=== PATIENT | male | born 1955 | race Caucasian/White ===

== ENCOUNTER 2016-12-25 10:46 | Emergency (ER) | payer OTHER ==
[~2016-12-25] VITALS: Ht 154.9 cm; Wt 70.0 kg
[~2016-12-25 10:46] MED LIST: CARVEDILOL6.25 MG PO; ECOTRIN81 M1 PO; ENALAPRIL10 MG PO; GLU500 PO; L20 PO; MASON25 MG PO; SIMVASTATIN10 MG PO
[2016-12-25 12:07] VITALS: BP 112/70
== END 2016-12-25 12:02 | disposition home or self-care (01) ==
LOC: ED 10:46
DX: L10.89 Other pemphigus (principal); I10 Essential (primary) hypertension; E11.9 Type 2 diabetes mellitus without complications; Z86.79 Personal history of other diseases of the circulatory system; Z79.899 Other long term (current) drug therapy

== ENCOUNTER 2018-05-11 11:43 | Inpatient (IN) | payer OTHER ==
[~2018-05-11] VITALS: Ht 154.9 cm; Wt 68.1 kg
[2018-05-11 15:09] LABS: BASOPHIL % 0.6 % (0-2); PLATELET COUNT 258 x10^3mcL (130-400); RED CELL DISTRIBUTION WIDTH 17.8 % (11.5-14.5)
[2018-05-11 15:48] LABS: CALCIUM 8.3 mg/dL (8.5-10.1); CARBON DIOXIDE 26.4 mmol/L (21-32); CHLORIDE SERUM 103 mmol/L (98-107); CREATININE SERUM 1.5 mg/dL (0.7-1.3); GFR1 50 mL/min; GLUCOSE SERUM 115 mg/dL (74-106); POTASSIUM SERUM 5.4 mmol/L (3.5-5.1); SODIUM SERUM 137 mmol/L (136-145)
[2018-05-11] MEDS ORDERED: GOOD SENSE ASPI81 M3 PO (15:56)
[2018-05-11] MEDS ORDERED: CARVEDILOL6.25 M1 PO (15:56)
[2018-05-11] MEDS ORDERED: ALDACTONE25 MG PO (15:56)
[2018-05-11] MEDS ORDERED: LASIX20 MG PO (15:56)
[2018-05-11] MEDS ORDERED: ENALAPRIL MALEA10 MG PO (15:57)
[2018-05-11] MEDS ORDERED: SIMVASTATIN20 M1 PO (15:58)
[2018-05-11 16:00] LABS: UA SPECIFIC GRAVITY 1.015 (1.005-1.035); microscopic required? YES; urine erythrocyte 1+ (NEGATIVE)
[2018-05-11 16:01] LABS: ALBUMIN 3.5 g/dL (3.4-5.0); ALKALINE PHOSPHATASE 85 U/L (46-116); ALT/SGPT 57 U/L (16-63); AMYLASE 52 U/L (25-115); AST/SGOT 56 U/L (15-37); LIPASE 274 IU/L (73-393); MAGNESIUM 2.3 mg/dL (1.8-2.4); T4(THYROXINE) 8.1 ug/dL (4.7-13.3); TOTAL PROTEIN, SERUM 7.3 g/dL (6.4-8.2)
[2018-05-11 16:02] LABS: CHOLESTEROL 102 mg/dL (<200); HDL CHOLESTEROL 19 mg/dL (40-60)
[2018-05-11 16:21] LABS: AMPHETAMINE QUAL UR NONE DETECTED (See below)
[2018-05-11 17:16] VITALS: BP 109/82
[2018-05-11 17:34] VITALS: BP 111/77
[2018-05-11 21:12] VITALS: BP 109/79
[2018-05-12 04:56] VITALS: BP 112/76
[2018-05-12 05:24] LABS: BASOPHIL % 0.5 % (0-2); PLATELET COUNT 209 x10^3mcL (130-400)
[2018-05-12 05:30] LABS: RED CELL DISTRIBUTION WIDTH 17.3 % (11.5-14.5)
[2018-05-12 05:36] LABS: CALCIUM 8.2 mg/dL (8.5-10.1); CARBON DIOXIDE 24.5 mmol/L (21-32); CHLORIDE SERUM 103 mmol/L (98-107); CREATININE SERUM 1.2 mg/dL (0.7-1.3); GFR1 > 60 mL/min; GLUCOSE SERUM 82 mg/dL (74-106); MAGNESIUM 2.2 mg/dL (1.8-2.4); POTASSIUM SERUM 4.8 mmol/L (3.5-5.1); SODIUM SERUM 138 mmol/L (136-145)
[2018-05-12 09:18] VITALS: BP 107/76
[2018-05-12 12:58] VITALS: BP 98/70
[2018-05-12 17:34] VITALS: BP 98/66
[2018-05-12 22:35] VITALS: BP 103/62
[2018-05-13 05:19] VITALS: BP 110/68
[2018-05-13 07:05] LABS: BASOPHIL % 0.5 % (0-2); PLATELET COUNT 226 x10^3mcL (130-400)
[2018-05-13 07:14] LABS: CALCIUM 8.1 mg/dL (8.5-10.1); CARBON DIOXIDE 29.2 mmol/L (21-32); CREATININE SERUM 1.5 mg/dL (0.7-1.3); PHOSPHOROUS 4.1 mg/dL (2.5-4.9)
[2018-05-13 09:29] VITALS: BP 104/67
[2018-05-13 13:38] VITALS: BP 91/57
[2018-05-13 17:00] VITALS: BP 103/38
[2018-05-14] VITALS (7 sets, daily range): BP systolic 90–122; BP diastolic 49–73; Ht 154.9 cm; Wt 68.1 kg
[2018-05-14 05:28] LABS: BASOPHIL % 0.5 % (0-2); PLATELET COUNT 223 x10^3mcL (130-400)
[2018-05-14 05:37] LABS: RED CELL DISTRIBUTION WIDTH 17.2 % (11.5-14.5)
[2018-05-14 05:47] LABS: CALCIUM 8.5 mg/dL (8.5-10.1); CARBON DIOXIDE 31.7 mmol/L (21-32); CHLORIDE SERUM 97 mmol/L (98-107); CREATININE SERUM 1.2 mg/dL (0.7-1.3); GFR1 > 60 mL/min; GLUCOSE SERUM 130 mg/dL (74-106); MAGNESIUM 2.1 mg/dL (1.8-2.4); PHOSPHOROUS 3.5 mg/dL (2.5-4.9); POTASSIUM SERUM 3.7 mmol/L (3.5-5.1); SODIUM SERUM 137 mmol/L (136-145)
[2018-05-14 19:28] LABS: CALCIUM 8.1 mg/dL (8.5-10.1); CARBON DIOXIDE 33.3 mmol/L (21-32); CREATININE SERUM 1.5 mg/dL (0.7-1.3); MAGNESIUM 2.1 mg/dL (1.8-2.4)
[2018-05-15 03:51] VITALS: BP 100/61
[2018-05-15 04:58] LABS: BASOPHIL % 0.9 % (0-2); PLATELET COUNT 231 x10^3mcL (130-400)
[2018-05-15 05:19] LABS: RED CELL DISTRIBUTION WIDTH 16.1 % (11.5-14.5)
[2018-05-15 05:43] LABS: CALCIUM 8.4 mg/dL (8.5-10.1); CARBON DIOXIDE 33.4 mmol/L (21-32); CREATININE SERUM 1.3 mg/dL (0.7-1.3); MAGNESIUM 2.3 mg/dL (1.8-2.4); PHOSPHOROUS 4.4 mg/dL (2.5-4.9); POTASSIUM SERUM 3.6 mmol/L (3.5-5.1)
[2018-05-15 08:15] VITALS: BP 101/68
[2018-05-15 11:30] VITALS: BP 86/59
[2018-05-15 16:30] VITALS: BP 93/58
[2018-05-15 19:36] VITALS: BP 91/60
[2018-05-15 23:26] VITALS: BP 93/63
[2018-05-16 03:24] VITALS: BP 97/68
[2018-05-16 05:41] LABS: BASOPHIL % 0.7 % (0-2); PLATELET COUNT 240 x10^3mcL (130-400)
[2018-05-16 05:45] LABS: CALCIUM 8.7 mg/dL (8.5-10.1); CARBON DIOXIDE 32.9 mmol/L (21-32); CREATININE SERUM 1.3 mg/dL (0.7-1.3); MAGNESIUM 2.2 mg/dL (1.8-2.4); PHOSPHOROUS 3.4 mg/dL (2.5-4.9); POTASSIUM SERUM 3.5 mmol/L (3.5-5.1)
[2018-05-16 05:47] LABS: RED CELL DISTRIBUTION WIDTH 16.1 % (11.5-14.5)
[2018-05-16 08:07] VITALS: BP 121/48
[2018-05-16 10:00] VITALS: BP 107/68
[2018-05-16 13:47] VITALS: BP 116/74
[2018-05-16 16:53] VITALS: BP 120/69
[2018-05-16 21:09] VITALS: BP 104/69
[2018-05-17 05:34] VITALS: BP 106/63
[2018-05-17] MEDS ORDERED: ALDACTONE25 MG PO (08:52)
[2018-05-17] MEDS ORDERED: CHLORTHALIDONE25 MG PO (09:01)
[2018-05-17 09:05] LABS: BASOPHIL % 0.8 % (0-2); PLATELET COUNT 265 x10^3mcL (130-400)
[2018-05-17 09:07] LABS: RED CELL DISTRIBUTION WIDTH 16.1 % (11.5-14.5)
[2018-05-17 09:17] LABS: CARBON DIOXIDE 35.1 mmol/L (21-32); CREATININE SERUM 1.5 mg/dL (0.7-1.3); POTASSIUM SERUM 3.7 mmol/L (3.5-5.1)
[2018-05-17 10:50] VITALS: BP 110/74
[2018-05-17 13:07] VITALS: BP 105/76
[2018-05-17 16:17] VITALS: BP 105/76
== END 2018-05-17 18:57 | disposition home or self-care (01) | DRG 190 ==
LOC: ED 11:43 → DU 15:38 → IC 05-13 16:44 → DU 05-16 09:49
PROVIDERS: Emergency Medicine; Family Medicine; Internal Medicine Cardiovascular Disease; ADMIT Internal Medicine
DX: I21.4 Non-ST elevation (NSTEMI) myocardial infarction (principal); N17.0 Acute kidney failure with tubular necrosis; R57.0 Cardiogenic shock; I50.43 Acute on chronic combined systolic (congestive) and diastolic (congestive) heart failure; I11.0 Hypertensive heart disease with heart failure; E11.622 Type 2 diabetes mellitus with other skin ulcer; E78.5 Hyperlipidemia, unspecified; I25.5 Ischemic cardiomyopathy; E11.51 Type 2 diabetes mellitus with diabetic peripheral angiopathy without gangrene; E11.65 Type 2 diabetes mellitus with hyperglycemia; E78.00 Pure hypercholesterolemia, unspecified; I08.1 Rheumatic disorders of both mitral and tricuspid valves; E87.5 Hyperkalemia; I25.10 Atherosclerotic heart disease of native coronary artery without angina pectoris; Z95.1 Presence of aortocoronary bypass graft; Z87.891 Personal history of nicotine dependence; Z79.84 Long term (current) use of oral hypoglycemic drugs; I25.2 Old myocardial infarction; Z91.11 Patient's noncompliance with dietary regimen; Z91.14 Patient's other noncompliance with medication regimen
CPT/HCPCS: 36600; 82962; 83880; G0480; J0282; J0690; J0696; J1650; J1940; J1956; J3370; J7040; J7050; J7060; Q0092

== ENCOUNTER 2018-05-23 08:36 | Inpatient (IN) | payer OTHER ==
[~2018-05-23] VITALS: Ht 154.9 cm; Wt 62.3 kg
[~2018-05-23 08:36] MED LIST changes: +ALDACTONE25 MG PO; +CARVEDILOL6.25 M1 PO; +CHLORTHALIDONE25 MG PO; +ENALAPRIL MALEA10 MG PO; +GOOD SENSE ASPI81 M3 PO; +LASIX20 MG PO; +SIMVASTATIN20 M1 PO
--- NOTE | 2018-05-23 09:02 | NUR ---
DR BENAVIDES COMPLETED MSE.
--- NOTE | 2018-05-23 09:05 | NUR ---
PT PRESENTS AT ED WITH BROTHER AT BEDSIDE WITH C/C OF SOB X 1 DAY. PT HAS HX OF CHF, AND DM. PT WAS RECENLTY DC WITH CHF EXASPERATION. PT PRESENTS WITH LABORDED BREATING, COLD EXTREMITIES, SOB AND HEADACHE. PT DENIES VOMITING DIAHRREA OR FEVER. PT PLACED ON CARIDAC MONITOR, O2/NL 2L, EKG COMPLETED BY EMT AMANDA/ IV PLACED BY RUT WHEELER. PT GIVEN WARM BLANKENTS FOR COMFORT DR BENAVIDES AT BEDSIDE TO DISCUSS PLAN OF CARE. WILL CONTINUE TO MONITOR
--- NOTE | 2018-05-23 09:22 | NUR ---
XRAY IN ROOM WITH PT
[2018-05-23] MEDS ORDERED: ENALAPRIL MALE2.5 MG PO (09:28)
[2018-05-23] MEDS ORDERED: LIPI20 PO (09:29)
[2018-05-23] MEDS ORDERED: AMIODARONE HCL200 MG (09:33)
--- NOTE | 2018-05-23 09:40 | NUR ---
LAB TECK AT BESIDE
[2018-05-23 10:26] LABS: BILIRUBIN TOTAL 0.92 mg/dL (0.20-1.00); CALCIUM 7.9 mg/dL (8.5-10.1); CARBON DIOXIDE 14.7 mmol/L (21-32); PHOSPHOROUS 6.3 mg/dL (2.5-4.9); TOTAL PROTEIN, SERUM 6.8 g/dL (6.4-8.2); URIC ACID 9.8 mg/dL (3.5-7.2)
[2018-05-23 10:28] LABS: BASOPHIL % 0.3 % (0-2); PLATELET COUNT 227 x10^3mcL (130-400)
[2018-05-23 10:30] LABS: ALBUMIN 2.8 g/dL (3.4-5.0); POTASSIUM SERUM 5.9 mmol/L (3.5-5.1)
[2018-05-23 10:34] LABS: RED CELL DISTRIBUTION WIDTH 16.6 % (11.5-14.5)
--- NOTE | 2018-05-23 11:13 | NUR ---
PT GIVEN MEDICATIONS ORDERED NO INFILTRATION OR PAIN NOTED. PT CALM ALERT, NAD AND ABLE TO SPEAK IN CLEAR SENTENCES WITHOUT DISTRESS. MD AT BEDSIDE.
--- NOTE | 2018-05-23 11:21 | NUR ---
PT SITTING COMFORTABLY IN UPRIGHT POSITION. DENIES PAIN OR DISCOMFORT MEDICATIONS INFUSING ORDERED. VITALS STABLE
--- NOTE | 2018-05-23 12:03 | NUR ---
CALLED TO GIVE REPORT TO RUT CERVANTES. INSTRUCTED THE RN WAS UNAVAILABLE AND TO CALL BACK WITHIN 10 MINUTES
--- NOTE | 2018-05-23 12:12 | NUR ---
TRIED TO CALL BACK TO GIVE REPORT TO RN TO ASSUME CARE OF PATIJACK. RN UNAVAILABLE AND INSTRUCTED TO CALL BACK
[2018-05-23 12:15] LABS: T3 TOTAL 0.6 ng/mL
[2018-05-23 12:30] LABS: FREE T4 1.11 ng/dL (0.76-1.46); FREE THYROXINE INDEX 3.5 ug/dL (1.4-4.5); T4(THYROXINE) 9.7 ug/dL (4.7-13.3)
--- NOTE | 2018-05-23 12:31 | NUR ---
REPORT GIVEN TO HELEN BETTENCOURT TO ASSUME CARE OF PT. PT VITALS STABLE DENIES PAIN NAD REPIRATIONS E/U
--- NOTE | 2018-05-23 12:31 | NUR ---
RECEIVED REPORT FROM JOAQUIM BETTENCOURT.
[2018-05-23 13:01] VITALS: BP 100/68
--- NOTE | 2018-05-23 13:24 | NUR ---
RECEIVED PT FROM ED ACCOMPANIED BY NURSE. Laine/KEIKO. TELE#27. RESPIRATIONS EQUAL AND UNLABORED ON NC 2L. NO ACUTE RESP DISTRESS NOTED. PT DENIES ANY PAIN OR SOB. WILL CONTINUE TO MONITOR. CALL LIGHT IN REACH. BED IN LOWEST POSITION.
--- NOTE | 2018-05-23 13:25 | NUR ---
PT SITTING UP IN BED EATING LUNCH. GIVEN PO MEDS. TOLEATED WELL. IV FLUSHED WELL. NO REDNESS OR SWELLING NOTED. IV FLUIDS INFUSING. GIVEN HEPARIN SQ IN ABDOMEN. PT DENIES ANY PAIN. NO ACUTE RESP DISTRESS NOTED. MRSA DONE. WILL CONTINUE TO MONITOR. CALL LIGHT IN REACH. BED IN LOWEST POSITION.
[2018-05-23 14:19] VITALS: BP 207/99
[2018-05-23 15:16] LABS: CALCIUM 8.8 mg/dL (8.5-10.1); CARBON DIOXIDE 22.3 mmol/L (21-32); POTASSIUM SERUM 5.4 mmol/L (3.5-5.1)
--- NOTE | 2018-05-23 15:30 | NUR ---
SPOKE WITH PATRICIA BURNS REQUESTED TO CANCEL ULTRASOUND RENAL PER LAB. RENAL WILL BE INCLUDED IN US ABDOMEN COMPLETE. ALSO INFORMED PATRICIA OF CRITICAL BUN 79.
--- NOTE | 2018-05-23 16:28 | NUR ---
PT IN BED RESTING. DENIES ANY PAIN AT THIS TIME. GIVEN IV ALBUMIN. RESPIRATIONS EQUAL AND UNLABORED ON RA. NO ACUTE RESP DISTRESS NOTED. WILL CONTINUE TO MONITOR. CALL LIGHT IN REACH. BED IN LOWEST POSITION
[2018-05-23 17:16] VITALS: BP 100/73
--- NOTE | 2018-05-23 18:59 | NUR ---
PT IN BED RESTING. RESPIRATIONS EQUAL AND UNLABORED ON RA. NO ACUTE RESP DISTRESS NOTED. DENIES ANY PAIN AT THIS TIME. IV PATENT AND INFUSING. NO REDNESS OR SWELLING NOTED. TELE#27. WILL ENDORSE TO EXHIBITS CURATOR RN. CALL LIGHT IN REACH. BED IN LOWEST POSITION.
--- NOTE | 2018-05-23 19:12 | NUR ---
PT RECEIVED A/O X4, RUSSIAN SPEAKING. ABLE TO MAKE NEEDS KNOWN. TELE #27, ALICE ANY CHEST PAIN/PRESSURE. WEAK PEDAL PULSES, 2+ PITTING EDEMA TO LEFT FOOT. LUNG SOUNDS CTA, BREATHING IS EVEN AND UNLABORED ON RA, DENIES SOB, NO RESP DISTRESS NOTED. ABD SOFT AND NONDISTENDED, BOWEL TONES ACTIVE X4 QUAD, DENIES N/V. VOIDS FREELY, URINAL AT BEDSIDE, BRP. STRICT I&O. GENREALIZED WEAKNESS, AMBULATORY. DARK DISCOLORATION TO BLE. PT DENIES ANY PAIN AT THIS TIME. IVF INFUSING WELL TO , SITE WNL. BED IN LOWEST SETTING, SIDE RAILS UP X2, CALL LIGHT WITHIN REACH. US TECH AT BEDSIDE. WILL CONT TO MONITOR.
[2018-05-23 20:39] VITALS: BP 115/73
--- NOTE | 2018-05-24 00:10 | NUR ---
PT RESTING IN BED WITH EYES CLOSED, BUT IS EASILY AROUSABLE. BREATHING IS EVEN AND UNLABORED, NO RESP DISTRESS NOTED. PT DENIES HAVING ANY PAIN AT THIS TIME. IVF INFUSING WELL TO , SITE WNL. CALL LIGHT WITHIN REACH. WILL CONT TO MONITOR.
[2018-05-24 05:19] VITALS: BP 124/79
--- NOTE | 2018-05-24 05:53 | NUR ---
PT SLEPT WELL THROUGHOUT THE EVENING. BREATHING IS EVEN AND UNLABORED, NO RESP DISTRESS NOTED. PT DENIES HAVING ANY PAIN AT THIS TIME. NO ACUTE CHANGES NOTED DURING SHIFT. IVF INFUSING WELL TO , SITE WNL. ALL NEEDS MET. CALL LIGHT WITHIN REACH. WILL ENDORSE CARE TO AM NURSE.
[2018-05-24 06:17] LABS: BASOPHIL % 0.4 % (0-2); PLATELET COUNT 229 x10^3mcL (130-400)
[2018-05-24 06:43] LABS: BILIRUBIN DIRECT 0.42 mg/dL (0.0-0.2); BILIRUBIN TOTAL 1.01 mg/dL (0.20-1.00); CALCIUM 8.2 mg/dL (8.5-10.1); CARBON DIOXIDE 24.4 mmol/L (21-32); CREATININE SERUM 2.3 mg/dL (0.7-1.3); POTASSIUM SERUM 4.8 mmol/L (3.5-5.1); TOTAL PROTEIN, SERUM 7.1 g/dL (6.4-8.2)
[2018-05-24 06:50] LABS: ALBUMIN 3.3 g/dL (3.4-5.0)
--- NOTE | 2018-05-24 07:23 | NUR ---
RECEIVED PT REPORT. PT SEEN REST ON BED, AWAKE, BELIZEAN SPEAKING. PT NO COMPLAIN OF PAIN AND DISCOMFORT AT THIS TIME. PT BREATHING ON RA, EVEN, UNLABORED.IV SITE PATENT, INTACT. IVF INFUSING WELL. PT IS ON ISOLATION OF HX MDRO WOUND.
[2018-05-24 08:52] VITALS: BP 121/70
--- NOTE | 2018-05-24 09:22 | NUR ---
WOUND CARE EVALUATION NOTE: SKIN ASSESMENT DONE, SKIN INTACT, NO OPEN WOUNDS, BLE DRYNESS WITH MULTIPLES SCABS AND PERIANKLE DARKER PIGMENTATIONS. FUNGAL LIKE TOE NAILS, PAIN 0/10. RECOMMENDATION: APPLY HYDRAGUARD TO BLE BID AND LEAVE IT OPEN TO AIR KEEP TOE NAILS / INTERSPACES DRY AND CLEAN AT ALL TIMES ABOVE RECOMMENDATIONS NOTIFY PRIMARY RN AND JOSUE TYLER NP.
--- NOTE | 2018-05-24 11:00 | NUR ---
PT REST ON BED, NO PROBLEM WITH URINATION, NO COMPLAIN OF ANY DISCOMFORT. WILL CONTINUE TO MONITOR.
[2018-05-24 13:31] VITALS: BP 97/55
[2018-05-24 16:27] VITALS: BP 107/70
--- NOTE | 2018-05-24 19:19 | NUR ---
PT RECEIVED A/O X4, INDIAN SPEAKING. ABLE TO MAKE NEEDS KNOWN. TELE #27, ALICE ANY CHEST PAIN/PRESSURE. WEAK PEDAL PULSES, PITTING EDEMA TO BLE. LUNG SOUNDS CTA, BREATHING IS EVEN AND UNLABORED ON RA, DENIES SOB, NO RESP DISTRESS NOTED. ABD SOFT AND NONDISTENDED, BOWEL TONES ACTIVE X4 QUAD, DENIES N/V. VOIDS FREELY, URINAL AT BEDSIDE, BRP. STRICT I&O. GENERALIZED WEAKNESS, AMBULATORY. DARK DISCOLORATION TO BLE, SCABS NOTED TO LEFT ANKLE. PT DENIES ANY PAIN AT THIS TIME. IVF INFUSING WELL TO , SITE WNL. BED IN LOWEST SETTING, SIDE RAILS UP X2, CALL LIGHT WITHIN REACH. WILL CONT TO MONITOR.
--- NOTE | 2018-05-24 19:28 | NUR ---
PT'S BROTHER IN LAW AT BED SIDE. PT NO COMPLAIN OF PAIN AT THIS TIME. ENDORSE PT'S CARE TO COMING NURSE.
[2018-05-24 20:19] VITALS: BP 122/77
--- NOTE | 2018-05-24 22:52 | NUR ---
PT ASKING ABOUT HIS CARDIAC MEDS. NO CARDIAC MEDS ARE SCHEDULED FOR THIS EVENING. DR ERVIN MADE AWARE. 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
--- NOTE | 2018-05-25 01:05 | NUR ---
PT RESTING IN BED WITH EYES CLOSED, BUT IS EASILY AROUSABLE. BREATHING IS EVEN AND UNLABORED, NO RESP DISTRESS NOTED. NO S/S OF PAIN OBSERVED. SL TO LH INTACT. NO ACUTE DISTRESS NOTED. CALL LIGHT WITHIN REACH. WILL CONT TO MONITOR.
--- NOTE | 2018-05-25 03:04 | NUR ---
PT C/O 08/26 CHEST PAIN AND SOB. VS: BP-122/84 (100), HR-78, 02 SAT ON RA-95%, RR-20, TEMP-97.7 F. NO ACUTE DISTRESS NOTED. PT STATES, "WHEN I GET COLD, I GET CHEST PAIN AND IT BECOMES HARD TO BREATH." PT REFUSES ANY PAIN MEDS AT THIS TIME, STATES "IF I KEEP GETTING IT, THEN I WILL CALL FOR PAIN MEDS." WARM BLANKET PROVIDED. NO ACUTE DISTRESS NOTED. DR DUMONT CALLED TO UPDATE, AWAITING CALL BACK. CALL LIGHT STEVEN REACH, WILL CONT TO MONITOR.
[2018-05-25 05:31] VITALS: BP 127/80
[2018-05-25 06:05] LABS: BASOPHIL % 0.7 % (0-2); PLATELET COUNT 209 x10^3mcL (130-400)
--- NOTE | 2018-05-25 06:05 | NUR ---
PT SLEPT AT INTERVALS THROUGHOUT THE NIGHT. BREATHING EVEN AND UNLABORED, NO RESP DISTRESS NOTED. PT ADMITS TO 4/10 CP, PT REFUSES PAIN MEDS AT TIME, STATES "NO, I'M OKAY FOR NOW." DR ERVIN AWARE OF PT'S CP. PER DR ERVIN WILL ORDER STAT EKG, AWAITING ORDERS. ALL NEEDS MET. SL TO LH, PATENT AND INTACT. CALL LIGHT WITHIN REACH. WILL ENDORSE CARE TO AM NURSE.
[2018-05-25 06:28] LABS: RED CELL DISTRIBUTION WIDTH 16.8 % (11.5-14.5)
[2018-05-25 06:37] LABS: CALCIUM 8.7 mg/dL (8.5-10.1); CARBON DIOXIDE 20.3 mmol/L (21-32); CREATININE SERUM 1.7 mg/dL (0.7-1.3); MAGNESIUM 2.7 mg/dL (1.8-2.4); POTASSIUM SERUM 4.3 mmol/L (3.5-5.1)
--- NOTE | 2018-05-25 07:19 | NUR ---
PT SEEN REST ON BED. PT REPORTED CHEST PAIN STILL THERE, BUT GETTING BETTER. PT STATED PAIN WITHIN TOLERANCE, REFUSED MED TO MANAGE. PT BREATHING ON RA, EVEN, UNLABORED. IV SITE SALINE LOCK AT THIS TIME PER ORDER.
[2018-05-25 09:17] VITALS: BP 129/87
--- NOTE | 2018-05-25 09:31 | NUR ---
Nutrition Note Wound Consult received for BLE wounds. Pt admitted with Renal Failure, metabolic acidosis, hyponatremia per H&P documentations. Per Cigar Head Perforator note 05/24/18: skin is intact, no open wounds, BLE w/ dry scabs. Pt does not meet high risk criteria per nutrition care policy and standards. Pt will be assessed as moderate risk and initial assessment due 05/27-05/29.
[2018-05-25 13:26] VITALS: BP 122/77
--- NOTE | 2018-05-25 16:09 | NUR ---
DR. BAJWA SAW PT AND STATED SHE WOULD ADJUST SOME PT'S HOME MEDS. MADE KATY SALAS AWARE. KATY SALAS CONFIRMED SHE COMMUNICATED WITH DR. BAJWA AND WILL ADJUST PT'S MEDS.
[2018-05-25 17:15] VITALS: BP 139/76
--- NOTE | 2018-05-25 19:20 | NUR ---
RECEIVED PT AWAKE,ALERT,ORIENTED X4. PT WALKING IN THE ROOM W/ STEADY GAIT NOTED. LUNGS CTA. NO SOB ON RA. BWEL SOUNDS ACTIVE. HE DENIES PAIN AT THIS TIME. W/ HL TO LT HAND INTACT. CALL LIGHT W/IN REACH. PT ON CONTACT ISOLATION.
--- NOTE | 2018-05-25 20:02 | NUR ---
ENDORSE PT'S CARE TO RECEIVING NURSE.
[2018-05-25 20:08] VITALS: BP 115/79
[2018-05-26] VITALS (8 sets, daily range): BP systolic 78–106; BP diastolic 47–73
--- NOTE | 2018-05-26 00:08 | NUR ---
PT APPEARS TO BE SLEEPING COMFORTABLY. HE IS BREATHING EVEN AND UNLABORED.
--- NOTE | 2018-05-26 05:08 | NUR ---
PT SLEPT FAIRLY. HE REMAINS ALERT AND ORIENTED X4. HE HAD NO C/O DIZZINESS OR LIGHTHEADEDNESS. NO C/O SOB. HE IS ABLE TO AMBULATE W/ STEADY GAIT. PT HAD NO C/O PAIN. HL TO LT HAND INTACT AND PATENT.
[2018-05-26 06:37] LABS: BASOPHIL % 0.5 % (0-2); PLATELET COUNT 226 x10^3mcL (130-400)
--- NOTE | 2018-05-26 07:15 | NUR ---
RECEIVED PT. IN BED A/A/O X3. NO SOB, NO N/V NOTED. PT. DENIES ANY PAIN AT THIS TIME. PT. IS ON CONTACT ISOLATION (HX. OF MDRO FROM WOUND). IV SITE NOTED TO L HAND. BED IN LOW POS., CALL LIGHT WITHIN REACH. SIDE RAILS UP X3.
[2018-05-26 07:41] LABS: CALCIUM 8.8 mg/dL (8.5-10.1); CARBON DIOXIDE 18.7 mmol/L (21-32); CREATININE SERUM 1.6 mg/dL (0.7-1.3); POTASSIUM SERUM 5.1 mmol/L (3.5-5.1)
--- NOTE | 2018-05-26 13:42 | NUR ---
CALLED AND GAVE REPORT TO RUT AUSTIN. IN ICU DEPT.
--- NOTE | 2018-05-26 13:50 | NUR ---
PT. IS BEING SEEN BY DR. BAJWA. DR. BAJWA STATED PT. NEEDS TO BE TRANSFERRED TO ICU DEPT. DUE TO ELEVATED BNP LEVEL (5057).
--- NOTE | 2018-05-26 13:53 | NUR ---
PT. IS BEING TRANSFERRED TO ICU DEPT. WITH ALL PERSONAL BELONGINGS.
--- NOTE | 2018-05-26 13:55 | NUR ---
RECEIVED THE PATIENT TRANSFERRED FROM [facility] UNIT. THE PATIENT AWAKE AND ORIENTED TO PERSON, PLACE AND TIME. PATIENT WAS ASSISTED TO POSITION COMFORTALY IN BED. PATIENT DENIED ANY PAIN, SHORTNESS OF BREATH, OR NAUSEA/VOMITING. SL NOTED TO LEFT HAND. PATIENT WAS ORIENTED TO ROOM AND HOOKED UP TO MONITOR. VS CHECKED. CALL LIGHT WITHIN REACH. SIDE RAILS UP X3.
--- NOTE | 2018-05-26 15:15 | NUR ---
MILRINONE DRIP WAS INITIATED AT 7.5ML/HR PER ORDERED.
--- NOTE | 2018-05-26 15:30 | NUR ---
DR. STOUT WAS AT BEDSIDE AND WAS AWARE OF THE PATIENT'S BP WAS AT LOW SIDE BUT THE MAP >60.
--- NOTE | 2018-05-26 17:39 | NUR ---
THE DINNER TRAY WAS HELD PER DR. STOUT'S REQUEST BECAUSE THE PATIENT MAY HAVE AICD PLACEMENT AT 1900.
--- NOTE | 2018-05-26 17:50 | NUR ---
DR. STOUT CALLED SAYING THAT THE PATIENT COULD HAVE DINNER. THE DINNER TRAY WAS SET UP FOR THE PATIENT.
--- NOTE | 2018-05-26 18:35 | NUR ---
PATIENT WAS CALM AND DENIED DISCOMFORT SINCE TRANSFERRED TO THE ROOM. PATIENT TOLERATED WITH DINNER, AND GOT OUT OF BED USING BEDSIDE COMMODE BY HIMSELF. THE MILRINONE DRIP REMAINED AT 7.5ML/HR ORDERED.
--- NOTE | 2018-05-26 19:16 | NUR ---
REPORT WAS GIVEN LINDA; CONCERNS WERE ADDRESSED.
--- NOTE | 2018-05-26 19:35 | NUR ---
RECEIVED PT AWAKE, ALERT AND ORIENTED X4, NO DISTRESS NOTED. TELE MONITOR #[address], READING SB WITH BBB; PT DENIES ANY CHEST PAIN OR CHEST DISCOMFORT AT THIS TIME. ON RA, BREATHING IS E/U, B/L LUNG SOUNDS CTA, DENIES SOB AT THIS TIME. ABD APPEARS SLIGHTLY FIRM, ROUND, ACTIVE BOWEL SOUNDS X4 Q. DENIES ABD PAIN OR DISCOMFORT. PT NOTED TO HAVE BLE DRYNESS AND OLD, DRY SCABS. NO OPEN WOUNDS NOTED. SHAYLEE. +2 PITTING EDEMA NOTED TO BLE, WEAK PEDAL PULSES, CAP REFILL <3 SECS. IV NOTED TO LFA, INFUSING MILRINONE AT 7.5 ML/HR. IV IS PATENT AND INTACT. NO REDNESS, SWELLING OR PAIN NOTED TO AREA. ALL SAFETY AND COMFORT MEASURES MAINTAINED. FAMILY AT BEDSIDE. CALL LIGHT AND PERSONAL ITEMS IN REACH. WILL CONTINUE TO MONITOR.
--- NOTE | 2018-05-26 21:30 | NUR ---
DR. SIFUENTES CAME IN TO SEE PATIENT; ALL NEEDS AND ADDRESSED. PER DR. SIFUENTES TO GIVE COREG AND LASIX. PT BP AT THIS TIME 103/67 HR 56. PT STABLE. WILL CONTINUE TO MONITOR.
--- NOTE | 2018-05-26 21:50 | NUR ---
DR. SIFUENTES AT BEDSIDE TO SPEAK TO PATIENT IN REGARDS TO BIVENTRICULAR PACER PLACEMENT. PATIENT VERBALIZED UNDERSTANDING. STATED THAT PROCEDURE WILL MOST LIKELY BE OCCURRING ON THIS UPCOMING WEDNESDAY.
--- NOTE | 2018-05-26 22:44 | NUR ---
PT RESTING WITH EYES CLOSED AT THIS TIME, EASILY AROUSABLE. NO ACUTE DISTRESS NOTED. NO INDICATION OF PAIN OR DISCOMFORT OBSERVED. SAFETY AND COMFORT PRECAUTIONS MAINTAINED. CALL LIGHT IN REACH. WILL CONTINUE TO MONITOR.
--- NOTE | 2018-05-26 23:14 | NUR ---
PTS BP NOW AT 78/[address] AZIZA GARCIA. AWAITING FURTHER ORDERS. WILL CONTINUE TO MONITOR.
--- NOTE | 2018-05-26 23:22 | NUR ---
SPOKE TO DR. ERVIN AND MADE HER AWARE OF CURRENT BP AT 81/47 MAP 59 AND HR 48-49. ORDER TO MONITOR BP FOR NOW. PT APPEARS COMFORTABLE, RESTING WITH EYES CLOSED, EASILY AROUSABLE TO VERBAL STIMULI. NO INDICATION OF DISTRESS NOTED . RESP. ARE E/U, RR AT 12 O2 AT 95% ON RA. WILL CONTINUE TO MONITOR.
[2018-05-27] VITALS (9 sets, daily range): BP systolic 90–114; BP diastolic 45–77
--- NOTE | 2018-05-27 03:25 | NUR ---
PT RESTING AT THIS TIME WITH EYES CLOSED, EASILY AROUSABLE TO VERBAL STIMULUS, ABLE TO FOLLOW COMMANDS. NO DISTRESS NOTED. NO C/O PAIN OR DISCOMFORT NOTED. SAFETY AND COMFORT MEASURES MAINTAINED. CALL LIGHT IN REACH. WILL CONTINUE TO MONITOR.
[2018-05-27 05:33] LABS: BASOPHIL % 0.7 % (0-2); PLATELET COUNT 225 x10^3mcL (130-400)
[2018-05-27 05:34] LABS: RED CELL DISTRIBUTION WIDTH 16.9 % (11.5-14.5)
[2018-05-27 05:43] LABS: CALCIUM 8.3 mg/dL (8.5-10.1); CARBON DIOXIDE 24.4 mmol/L (21-32); CREATININE SERUM 1.7 mg/dL (0.7-1.3); MAGNESIUM 2.2 mg/dL (1.8-2.4); PHOSPHOROUS 3.9 mg/dL (2.5-4.9); POTASSIUM SERUM 3.8 mmol/L (3.5-5.1)
--- NOTE | 2018-05-27 06:04 | NUR ---
PT AWAKE, RESTING IN BED AT THIS TIME. NO DISTRESS NOTED. PT STABLE, BP 100/61, HR 51. NO C/O PAIN AT THIS TIME. NO ACUTE CHANGES IN CONDITION. NO ABD PAIN, NO N/V NOTED. IV TO LH PATENT AND INTACT. ALL SAFETY MEASURES MAINTAINED. CALL LIGHT IN REACH. WILL ENDORSE CARE TO AM NURSE AND CONTINUE TO MONITOR.
--- NOTE | 2018-05-27 07:30 | NUR ---
PT IS ALERT AND ORIENTED X4. PUPILS ARE 3 MM AND BRISK BILATERALLY. ABLE TO VERBALIZE ALL NEEDS. PT IS BREATHING E/U ON RA. LUNG SOUNDS CLEAR TO BILATERAL UPPER LOBES, DIMINSHED TO BILATERAL LOWER LOBES. S1 S2 HEART SOUNDS AUSCULTATED IN A FIB. PERIPHERAL IV TO LEFT WRIST. PT HAS MILRINONE INFUSION AT 7.5 ML/HR. +3 EDEMA TO BLE WITH PITTING. CAP REFILL <3 SECONDS X4. SKIN IS WARM AND CONSISTENT WITH ETHNICITY. ABD IS SOFT AND ROUNDED WITH ACTIVE BOWEL SOUNDS X4Q. PT VOIDS FREELY USING URINAL. ABLE TO REPOSITION SELF INDEPENDENTLY. SKIN INTACT. HAS SOME SCABBING TO BILATERAL ANKLES. ALL QUESTIONS AND CONCERNS ANSWERED.
--- NOTE | 2018-05-27 10:03 | NUR ---
DR. MACKAY AT BEDSIDE WITH RESIDENT AND MEDICAL STUDENTS FOR UPDATES. ALL QUESTIONS AND CONCERNS ANSWERED.
--- NOTE | 2018-05-27 10:34 | NUR ---
DR. BAJWA AT BEDSIDE FOR UPDATES. STATED THAT PT WILL REMAIN ON MILRINONE FOR THE WEEKEND.
--- NOTE | 2018-05-27 12:43 | NUR ---
*Recommend adding Cardiac Low Fat Low CHOL 2gm Na to current diet. Please see Nutritional Assessment for details.
--- NOTE | 2018-05-27 12:43 | NUR ---
Initial Nutrition Assessment- Dx: Renal Failure, Metabolic Acidosis, Hyponatremia PMHx: DM, HTN, Dyslipidemia, CHF, CAD, ID PSHx: CABG Labs: (05/27) BUN 56 H, CRE 1.7 H, Ca 8.3 L, (05/23) HgA1c 6.8 H Meds: aldactone, humulin, lasix, mildrinone/D5%W IV, zofran, heparin Diet: CCHO diet x 4 days ; Fluid restriction 1200ml per day. PO Intake: 99% x 5 meals Ht: 5'1 Wt: 147 lb, 67 kg BMI: 27.8 kg/m2 (overweight) IBW: 112 lb, 51 kg %IBW: 131 UBW: 150 lb Age: 62 yrs old Food Allergies: NKFA Skin: L groin w/ dermatitis, L lower leg w/ scattered drued wounds, R lower leg w/ scattered dried wounds. Sha: 19 Edema: 3+ pitting edema to BLE. GI: abd is firm and round w/ active bowel sounds. Last BM 05/27/18, soft. Per H&P, presented to the ER complaining of dizziness that started last night. Other associated symptoms include some generalized weakness. However he denies any shortness of breath, nausea/vomiting/diarrhea, fever/chills, pain, orthopnea, syncope. He states he has been compliant with his medication and has still been having urine output. Bed huddle Per Neurourologist note 05/24/18: BLE w/ dry scabs. Skin is intact. Pt seen resting in bed at time of RD visit. ICU staff helped in the interpretation as pt is Sami speaking. Pt reported noticing some wt loss as his pants feel loose, amount and time frame is unknown. Pt also reported that he follows low sodium diet at home. Per RN, plan to have Biventricular Pacer Placement this coming Wednesday. Pt is tolerating diet and eating well. Problem with: no c/o N/V/D/C Problems with: Chewing: no Swallowing: no Current appetite: good Recent wt change: none %wt change: n/a Vitamin/Supplement use: none Special diet at home: none Physical activity: none Education: verbal education on Cardiac diet provided. Estimated Nutritional Needs Based on ideal body weight 51 kg Energy: 2286-1627 kcal/d ( 25-30 kcal/kg-maintenance) Protein: 31-41 g/d (.6-.8 g/kg for elevated Renal labs) Fluid: per doctor (on strict fluid restriction) Nutrition Diagnosis Altered nutrition related labs related to renal dysfunction as evidenced by elevated BUN and CRE lab values. Intervention *Recommend adding Cardiac Low Fat Low CHOL 2gm Na to current diet. Monitor/Evaluate Goal: PO intake at least 75% of estimated needs Monitor: PO intake, Labs, GI function F/U in 3-5 days as moderate risk 05/30-06/01
--- NOTE | 2018-05-27 18:55 | NUR ---
pt had good day/ambulatory/resting quietly in bed, new 20g iv inserted in right arm after left hand site became infiltrated/pt otherwise in zero distress, bs noon no insulin needed as well as 1630 bs/tolerating milrinone, vs stable
--- NOTE | 2018-05-27 20:00 | NUR ---
RECEIVED PT IN BED, RESTING QUIETLY. A/O X4. DENIES HEADACHE/DIZZINESS. RESP. EVEN AND UNLABORED. ON ROOM AIR, SAT. 95%. NO ACUTE DISTRESS NOTED. AFEBRILE AND VITAL SIGNS STABLE. SB (58) ON THE MONITOR AT THIS TIME. DENIES CP. ON MILDINONE DRIP AT 7.5ML/HR, INFUSING VIA RT HAND, SITE CLEAR. ABLE TO MOVE ALL EXTS. VOIDING VIA URINAL. CALL LIGHT WITHIN REACH. WILL CONTINUE TO MONITOR.
--- NOTE | 2018-05-27 23:30 | NUR ---
RESTING WITH EYES CLOSED, EASILY AROUSABLE. APPEARS COMFORTABLE. RESP. EVEN AND UNLABORED. NO ACUTE DISTRESS NOTED. SAFETY AND COMFORT PRECS. MAINTAINED. CALL LIGHT WITHIN REACH. WILL CONTINUE TO MONITOR.
[2018-05-28] VITALS (10 sets, daily range): BP systolic 92–125; BP diastolic 56–77
--- NOTE | 2018-05-28 00:23 | NUR ---
ASLEEP, EASILY AROUSABLE. RESP. EVEN AND UNLABORED. SAT. 95% ON ROOM AIR. NO ACUTE DISTRESS NOTED. CALL LIGHT WITHIN REACH. WILL CONTINUE TO MONITOR.
[2018-05-28 05:15] LABS: BASOPHIL % 0.4 % (0-2); PLATELET COUNT 252 x10^3mcL (130-400)
[2018-05-28 05:23] LABS: RED CELL DISTRIBUTION WIDTH 17.8 % (11.5-14.5)
[2018-05-28 06:12] LABS: CALCIUM 8.4 mg/dL (8.5-10.1); CARBON DIOXIDE 26.8 mmol/L (21-32); CREATININE SERUM 1.4 mg/dL (0.7-1.3); MAGNESIUM 1.9 mg/dL (1.8-2.4); PHOSPHOROUS 3.3 mg/dL (2.5-4.9); POTASSIUM SERUM 3.5 mmol/L (3.5-5.1)
--- NOTE | 2018-05-28 06:25 | NUR ---
AFEBRILE AND VITAL SIGNS STABLE. DR KUMAR MADE AWARE OF PT,S B/P READINGS AND MEDS HELD. REMAINS ON MILRINONE DRIP AT 7.5ML/HR, IV SITE CLEAR AND INTACT. SLEPT WELL. NO COMPLAINTS NOTED. VOIDING FREELY. HAD X1 NICA. SOFT BM. RESP. EVEN AND UNLABORED. ON ROOM AIR, NO ACUTE DISTRESS NOTED. BS CHECKED, NO INSULIN COVERAGE REQUIRED. WILL CONTINUE TO MONITOR.
--- NOTE | 2018-05-28 08:00 | NUR ---
OX4. NO SOB AT RM AIR. DENIES PAIN. EDEMATOUS ON BLE. DRY SCABS ON BLE; PHOTO TAKEN. IVF MILRINONE AT 7.5N ML/HR INFUSING; RFA SITE PATENT;FALL AND SAFETY PRECAUTION REINFORCED. WILL CONTINUE TO MONITOR STATUS.
--- NOTE | 2018-05-28 12:08 | NUR ---
PT IS AAOX4. SITS AT THE EDGE OF THE BED MOST OF THE TIME; NO NEW COMPLAINTS.
--- NOTE | 2018-05-28 15:23 | NUR ---
PT CONVERSING WITH 2 VISITORS
--- NOTE | 2018-05-28 16:49 | NUR ---
DR. Laine BAKER (RIGGING LOFT REPAIRER) IS HERE AND CHECKED PT; GAVE VERBAL ORDERS FOR KCL 40 MEQ PO X1 AND MAGSULFATE 2 GM IV X1.
--- NOTE | 2018-05-28 18:43 | NUR ---
NO NEW ACUTE CHANGES IN STATUS. SLEEPING AT THIS THIS TIME; MAGRIDER INFUSING;
--- NOTE | 2018-05-28 19:20 | NUR ---
RECEIVED PT ALERT AND ORIENTED X4, ABLE TO RESPOND TO COMMANDS, MAKE NEEDS KNOWN, SPEECH CLEAR. PT ON ROOM AIR, DENIES SOB, NO S/S OF ACUTE RESP DISTRESS. PT ON CONTINUOUS PULSE OXIMETRY, FULL PREDICTIVE MAINTENANCE SPECIALIST, DENIES CHEST PAIN OR PAIN AT THIS TIME. EDEMA NOTED TO BLE. PT ON CCHO DIET, NO S/S OF N/V. PT HAS BEDSIDE URINAL AND COMMODE, CLEAR YELLOW URINE. NO PENILE DISCHARGE/EDEMA NOTED. BLE SCABS NOTED PRINCIPAL STATISTICAL PROGRAMMER. IV TO RFA, PORT PATENT, NO S/S OF INFILTRATION, DRESSING CDI, INFUSING MILRINONE @ 7.5 ML/HR PER MD ORDER DOSAGE BASED FOR RENAL PATIENT. MAG RIDER INFUSING @ 25 ML/HR. TEACHING PROVIDED TO PATIENT, PT CALM/COOPERATIVE AND COMPLIANT WITH CARE. HOB AT 45 DEGREES PER PT COMFORT, BED AT LOWEST SETTING, CALL LIGHT WITHIN REACH. WILL CONT TO MONITOR.
[2018-05-29 03:15] VITALS: BP 90/53
--- NOTE | 2018-05-29 03:40 | NUR ---
PT SLEEPING BUT EASILY AROUSABLE TO VERBAL/TACTILE STIMULI. HR=51 AT THIS TIME, PT DENIES CHEST PAIN OR SOB OR PAIN. EDUCATION PROVIDED RESIDENTIAL DIRECTOR LIGHT FOR ASSISTANCE AND TO REPORT ANY CHEST PAIN OR PAIN TO NURSE, PT VERBALIZES UNDERSTANDING.
[2018-05-29 05:28] LABS: BASOPHIL % 1.4 % (0-2); PLATELET COUNT 258 x10^3mcL (130-400)
[2018-05-29 05:32] LABS: RED CELL DISTRIBUTION WIDTH 17.4 % (11.5-14.5)
[2018-05-29 06:23] LABS: CALCIUM 7.9 mg/dL (8.5-10.1); CHLORIDE SERUM 100 mmol/L (98-107); CREATININE SERUM 1.2 mg/dL (0.7-1.3); GFR1 > 60 mL/min; GLUCOSE SERUM 88 mg/dL (74-106); MAGNESIUM 2.2 mg/dL (1.8-2.4); PHOSPHOROUS 3.1 mg/dL (2.5-4.9); POTASSIUM SERUM 3.8 mmol/L (3.5-5.1); SODIUM SERUM 134 mmol/L (136-145)
--- NOTE | 2018-05-29 06:35 | NUR ---
DR. KUMAR MADE AWARE OF LASIX IVP HELD THIS AM PER EMAR FOR NIBP OF SYSTOLIC IN THE 80'S.
--- NOTE | 2018-05-29 07:15 | NUR ---
GAVE REPORT TO RUT LAUREN. UPDATES GIVEN, QUESTIONS ANSWERED.
[2018-05-29 07:44] VITALS: Ht 154.9 cm; Wt 62.3 kg
[2018-05-29 08:00] VITALS: BP 94/44
--- NOTE | 2018-05-29 08:00 | NUR ---
CONT. IV FLUIDS MILRINONE @ 7.5 ML/HR PER MD ORDER DOSAGE BASE FOR RENAL PT.INFUSING WELL TO RFA.
--- NOTE | 2018-05-29 08:00 | NUR ---
RECIEVED PT. AWAKE,ALERT AND ORIENTED X 4 ABLE TO VERBALIZED NEEDS,DENIES ANY PAIN AT THIS TIME ,NO SOB AND NO ACUTE RESP. DISTRESS NOTED. ON RA. ABLE TO GET UP IN BSC AND HAD BM THIS AM SOFT MOD. BROWN STOOLS AND VOIDING IN URINAL. AM CARE RENDERED. ATE BREAKFAST WELL.HOB ELEVATED TO 45 DEGREE PER PT. REQUEST,RESTING COMFORTBLE IN BED. SEE AM SHIFT ASSESSESMENT. WILL CONT. TO MONITOR PT. AND CONT. PLAN OF CARE.CALL LIGHT W/ IN REACH.
--- NOTE | 2018-05-29 10:52 | NUR ---
NOTED FLUIDS BLISTER IN RT. GROIN SEE PICTURE,DR. KUMAR NOTIFIED AND MADE AWARE.
--- NOTE | 2018-05-29 10:54 | NUR ---
PT. RESTING COMFORTABLY IN BED. KEEP ON FLUIDS RESTRICTIONS TO 1200 CC PER DAY.PT. MADE AWARE.DENIES ANY PAIN AT THIS TIME.CALL LIGHT W/ IN REACH. NO ACUTE DISTRESS NOTED.
[2018-05-29 12:00] VITALS: BP 96/62
--- NOTE | 2018-05-29 12:00 | NUR ---
PT. RESTING COMFORTABLY IN BED. DENEIS ANY PAIN. NO ACUTE RESP. DISTRESS NOTED.USES URINAL AND VOIDING.CONT.MILRINONE IV INFUSING WELL.WILL CONT. TO MONITOR PT.
--- NOTE | 2018-05-29 15:00 | NUR ---
DR. BAKER CAME IN SEEN THE PT.
--- NOTE | 2018-05-29 15:30 | NUR ---
DR. SIFUENTES ELECTROPHYSIOLOGY CAME IN SEEN THE PT. SCHEDULE FOR BIVENTRICULAR PACER PLACEMENT ON WEDNESDAY @ 13 PM.PT. MADE AWARE.
--- NOTE | 2018-05-29 15:30 | NUR ---
ELECTROPHYSIOLOGY CAME IN SEEN THE PT. AND SCHEDULED FOR PACEMAKER PLACEMENT ON WEDNESDAY 05/31 AT 1300 PM .
[2018-05-29 16:00] VITALS: BP 100/59
--- NOTE | 2018-05-29 16:00 | NUR ---
PT. RESTING COMFORTABLY IN BED. CONT. IVF MILRINONE 7.5 INFUSING WELL ORDERED.DENIES ANY PAIN THE WHOLE DAY. CONT. FLUIDS RESTRICTION 1200 CC/DAY. WILL CONT. TO MONITOR PT.
--- NOTE | 2018-05-29 18:53 | NUR ---
AYDEE ANNE HERE AND SEEN THE PT.
[2018-05-29 19:15] VITALS: BP 110/59
--- NOTE | 2018-05-29 19:15 | NUR ---
PT RECEIVED A/O X4, KOSOV[place] SPEAKING, SPEECH CLEAR, ABLE TO MAKE NEEDS KNOWN, DENIES ANY H/A OR DIZZINESS. NSR WITH BBB, PT DENIES ANY CHEST PAIN/PRESSURE. WEAK PEDAL PULSES, 3+ PITTING EDEMA TO LLE. LUNG SOUNDS CLEAR KELVIN, BREATHING IS EVEN AND UNLABORED ON RA, DENIES SOB, NO RESP DISTRESS NOTED. ABD SOFT AND NONDISTENDED, BOWEL TONES ACTIVE X4 QUAD, DENIES N/V. VOIDS FREELY, URINAL AT BEDSIDE. GENERALIZED WEAKNESS, AMBULATORY TO BSC. SCABS NOTED TO CHEST AND BLE, DARK DISCOLORATION TO BLE. FLUID-FILLED BLISTER NOTED TO RIGHT-SIDE OF GROIN AREA. PT DENIES HAVING ANY PAIN AT THIS TIME. MILRINONE INFUSING WELL @ 7.5 ML/HR TO [facility], SITE WNL. BED IN LOWEST SETTING, SIDE RAILS UP X2, CALL LIGHT WITHIN REACH. WILL CONT TO MONITOR.
[2018-05-29 23:15] VITALS: BP 102/67
--- NOTE | 2018-05-30 00:28 | NUR ---
PT RESTING IN BED WITH EYES CLOSED, BUT IS EASILY AROUSABLE. BREATHING IS EVEN AND UNLABORED ON RA, NO RESP DISTRESS NOTED. PT DENIES HAVING ANY PAIN AT THIS TIME. MILRINONE INFUSING @ 7.5 ML/HR TO [facility], SITE WNL. NO ACUTE DISTRESS OBSERVED. CALL LIGHT WITHIN REACH. WILL CONT TO MONITOR.
[2018-05-30 03:13] VITALS: BP 104/64
[2018-05-30 05:34] LABS: BASOPHIL % 0.6 % (0-2); PLATELET COUNT 260 x10^3mcL (130-400)
[2018-05-30 05:35] LABS: RED CELL DISTRIBUTION WIDTH 17.4 % (11.5-14.5)
[2018-05-30 06:18] LABS: CALCIUM 8.4 mg/dL (8.5-10.1); CARBON DIOXIDE 24.7 mmol/L (21-32); CHLORIDE SERUM 101 mmol/L (98-107); CREATININE SERUM 1.2 mg/dL (0.7-1.3); GFR1 > 60 mL/min; GLUCOSE SERUM 85 mg/dL (74-106); MAGNESIUM 2.1 mg/dL (1.8-2.4); PHOSPHOROUS 2.9 mg/dL (2.5-4.9); SODIUM SERUM 136 mmol/L (136-145)
--- NOTE | 2018-05-30 06:24 | NUR ---
PT SLEPT WELL THROUGHOUT THE EVENING. BREATHING IS EVEN AND UNLABORED, NO RESP DISTRESS NOTED. PT DENIES HAVING ANY PAIN AT THIS TIME. MILRINONE INFUSING WELL TO RFA @ 7.5 ML/HR, SITE WNL. ALL NEEDS MET. CALL LIGHT WITHIN REACH. WILL ENDORSE CARE TO AM NURSE.
--- NOTE | 2018-05-30 06:36 | NUR ---
UPDATED DR STOUT WITH PT'S STATUS, AWARE OF BIVENTRICULAR PACER PLACEMENT ON 05/31 @ [address] SIFUENTES. ALL QUESTIONS AND CONCERNS ADDRESSED.
--- NOTE | 2018-05-30 07:14 | NUR ---
CONTINUITY OF CARE ENDORSED TO AM NURSE. ALL QUESTIONS AND CONCERNS ADDRESSED.
[2018-05-30 08:00] VITALS: BP 114/76
--- NOTE | 2018-05-30 08:00 | NUR ---
THE PATIENT AWAKE AND ORIENTED TO PERSON, PLACE AND TIME. PATIENT DENIED ANY SHORTNESS OF BREATH, NAUSEA/VOMITING OR PAIN AT THIS TIME. PATIENT STATED HAVING BLURRED VISION TO LEFT EYE. TELE # 4 READS SINUS RHYTHMS WITH EPISODES OF BBB AND SINUS BRADYCARDIA. MILRINONE DRIP AT 7.5 ML/HR VIA H/L TO RFA. CALL LIGHT WITHIN REACH. SIDE RAILS UP X3. BED WAS AT LOWEST POSITION.
--- NOTE | 2018-05-30 10:43 | NUR ---
DR. STOUT WAS NOTIFIED THAT COREG 12.5 MG PO WAS HELD EARLIER DUE TO BP 99/58 AT 10 AM. DOCTOR AGREED WITH THAT.
--- NOTE | 2018-05-30 10:44 | NUR ---
DR. MACKAY AND THE TEAM WERE MAKING ROUND TO SEE THE PATIENT. THE CARE PLAN WAS DISCUSSED WITH THE PATIENT, AND THE PATIENT AGREED WITH THE PLAN.
--- NOTE | 2018-05-30 10:53 | NUR ---
DR. GILLILAND IN TO SEE THE PATIENT.
[2018-05-30 11:35] VITALS: BP 123/74
--- NOTE | 2018-05-30 11:45 | NUR ---
MILRINONE DRIP WAS TITRATED FROM 7.5ML/HR DOWN TO 3.75 ML/HR PER DR. STOUT'S INSTRUCTION.
--- NOTE | 2018-05-30 15:00 | NUR ---
MILRINONE DRIP WAS DISCONTINUED PER DR. STOUT'S REQUEST.
[2018-05-30 15:15] VITALS: BP 101/64
--- NOTE | 2018-05-30 16:41 | NUR ---
DR. BAJWA WAS AT BEDSIDE EXAMING THE PATIENT.
--- NOTE | 2018-05-30 17:34 | NUR ---
REPORT WAS GIVEN TO RUT QUINTERO. ALL CONCERNS WERE ADDRESSED. THE PATIENT WILL BE TRANSFERRED TO ROOM 203B, [facility] AFTER FINISHING DINNER.
--- NOTE | 2018-05-30 18:09 | NUR ---
THE PATIENT WAS TRANSFERRED TO ROOM 203B; AARON AND INGRID RNs RECEIVED THE PATIENT.
[2018-05-30 18:10] VITALS: BP 116/78
--- NOTE | 2018-05-30 18:10 | NUR ---
RECEIVED PT FROM ICU BY WHEELCHAIR ACCOMPANIED BY NURSE. PT AWAKE ADN ALERT, A/OX4 AND AMBULATORY. ON RA, NO RESP DISTRESS NOTED. IV RFA C/D/I. INFUSES WELL. VSS. PT ORIENTED TO ROOM. SAFETY MEASURES IN PLACE. BED LOW AND LOCKED CALL LIGHT WITHIN REACH WILL ENDORSE CARE TO ONCOMING NURSE. PT STABLE AT THIS TIME.
--- NOTE | 2018-05-30 19:20 | NUR ---
RECEIVED PT WALKING IN THE HALLWAY. HE IS ALERT,ORIENTED X4. PT AMBULATING W/ STEADY GAIT. NO SOB O RA. HE HAS NO C/O PAIN AT THIS TIME. W/ HL TO RTFA. WILL CONTINUE TO MONITOR.
[2018-05-30 21:47] VITALS: BP 97/66
--- NOTE | 2018-05-31 00:15 | NUR ---
FED PT W/ SANDWICH, JELLO AND SODA AT THIS TIME.
--- NOTE | 2018-05-31 02:34 | NUR ---
PT APPEARS TO BE SLEEPING COMFORTABLY. HE IS BREATHING EVEN AND UNLABORED.
--- NOTE | 2018-05-31 04:23 | NUR ---
STARTED NEW IV G 20 TO LTFA ( ORDERED FOR AICD PLACEMENT).PT TOLERATED PROCEDURE WELL.
--- NOTE | 2018-05-31 05:11 | NUR ---
PT SLEPT AT LONG INTERVALS. HE REMAINS ALERT AND ORIENTED X4. NO EPISODE OF SOB. PT AMBULATING W/O DIFFICULTY AND W/O SOB. HE HAD NO C/O PAIN. PT KEPT NPO ORDERED FOR AICD PLACEMENT AT 1300. W/ HL TO RTFA ND LTFA INTACT AND PATENT. ALL NEEDS ATTENDED TO.
--- NOTE | 2018-05-31 05:52 | NUR ---
INFORMED DR. ERVIN REGARDING BS=79 AND PT NPO FOR AICD PLACEMENT AT [address] ERVIN OKAY TO GIVE SUGAR IN PT'S MOUTH. ALSO INFORMED HER THAT EVENING DOSE OF COREG, LASIX IV AND AMIODARONE WERE NOT GIVEN DUE TO BP OF 97/76 HR=65 AND ALSO WILL NOT GIVE LASIX IV THIS AM FOR BP OF 99/64 HR=67.
[2018-05-31 05:55] VITALS: BP 99/64
[2018-05-31 06:15] LABS: BASOPHIL % 0.7 % (0-2); PLATELET COUNT 267 x10^3mcL (130-400)
[2018-05-31 06:24] LABS: RED CELL DISTRIBUTION WIDTH 17.1 % (11.5-14.5)
--- NOTE | 2018-05-31 06:34 | NUR ---
BS RECHECKED AFTER PT WAS GIVEN 1 SMALL PACKET OF SUGAR IN HIS MOUTH. NI=[id number] .
[2018-05-31 06:48] LABS: CALCIUM 8.7 mg/dL (8.5-10.1); CARBON DIOXIDE 23.4 mmol/L (21-32); CREATININE SERUM 1.5 mg/dL (0.7-1.3); MAGNESIUM 2.2 mg/dL (1.8-2.4); PHOSPHOROUS 3.1 mg/dL (2.5-4.9); POTASSIUM SERUM 4.2 mmol/L (3.5-5.1)
--- NOTE | 2018-05-31 07:40 | NUR ---
RECEIVED PT IN THE BED. ASSESSED AND DOCUMENTED. STABLE. DENIES CHEST PAIN. SAFTEY PRECAUTIONS ARE IN PLACE. WILL MONITOR.
--- NOTE | 2018-05-31 08:30 | NUR ---
PT LIKES TO AMBULATES IN THE HALLWAY ALL THE TIME. NO DISTRESS NOTED. STABLE. DENIES ANY PAIN.
[2018-05-31 10:00] VITALS: BP 113/72
--- NOTE | 2018-05-31 12:25 | NUR ---
OFFICE SECRETARY STAFF CAME TO AEROSPACE MECHANIC PT. CONSENT WAS SIGNED BY PT WITH OFFICE SECRETARY NURSE NATHALIE. CHECK LIST IS DONE. PT IS STABLE. DENIES PAIN. PT TAKEN TO OFFICE SECRETARY VIA BED. V/S STABLE. CHLORHEXIDINE WIPE WAS DONE. NS 250ML BAG DISCONNECT AND GAVE TO CATHLAB NURSE,ALSO VANCOMYCIN IV BAG GIVEN TO CATH RN, INFORMED RN ABOUT BACITRACIN WILL BE DELIVERED TO OFFICE SECRETARY BY PHARMACY, NOT VERIFIED YET THIS THIS TIME. CALLED PHARMACY AND INFORMED THEM ABOUT BACITRACIN SHOULD BE DELIVERED TO OFFICE SECRETARY WILL PER ORDER.
--- NOTE | 2018-05-31 15:41 | NUR ---
Follow-up Nutrition Assessment Dx: Renal failure, acidosis Labs: (05/31) Na 137, K 4.2, BG 86, BG 34H, Cr 1.5H, Ca 8.7, P 3.1, WBC 7.8, H/H 15.3/46 Meds: Aldactone, Cordarone, Coreg, D50%, Humulin, Lasix, Lipitor, NSIV, Tylenol, Vancocin, Vasotec, Zofran Diet: NPO for AICD placement today PO intake: (05/30) B/L/D: 100% (05/29) B/L/D: 50% (05/28) B/D: 50% L: 100% Weights: (05/30) 62.3 kg Skin: BLE scattered dried wounds (healed, intact) Sha: 21 Edema: +3 pitting to LLE Last BM: x 1 (05/31) Per provider progress notes, no acute events overnight. AICD placement to take place this afternoon 05/31/18 per provider during bed huddle discussion. Pt. endorses excellent appetite and good tolerance to diet order (previously on CCHO diet with 1200 mL FR/daily) with no GI distress reported. No major changes to previous assessment. Estimated Nutritional Needs based on IBW 51 kg: Energy: 6610-1305 kcal (25-30 kcal-maintenance) Protein: 51-61 g (1.0-1.2 g/kg-maintenance and prevention of lean body mass losses) Fluid: Per doctor's orders d/t fluid restrictions Nutrition Diagnosis 1. Altered nutrition related laboratory values r/t renal dysfunction AEB elevated BUN and Cr values 34 and 1.5, respectively. (Improving-ongoing) Intervention/RD recommendations 1. When AICD placement has been complete, resume to previously ordered diet (CCHO) as tolerated. 2. If PO intake <75% by following assessment, consider adding ONS QD for supplementation. Monitor/Evaluate Previous goal: PO intake at least 75% of estimated needs (met) Goal: PO intake at least 75% of estimated needs Monitor: PO intake, Labs, GI function, weights F/U in 7 days as low risk (06/07)
--- NOTE | 2018-05-31 16:00 | NUR ---
RECEIVED REPORT FROM CURING PRESS OPERATOR RN NATHALIE. SHE SAID PT HAD BIVICD PLACEMENT WITH [employer] [employer] AND COMPANY WILL COME TOMORROW TO ASSESS THE PT. SHE SAID PT WILL HAVE CHEST XRAY AND HE CANNOT EAT UNTIL CHEST XRAY RESULT COME BACK. RATE SETTING IS LOW STTING AT 70 HR AND HIGH AT 120.
--- NOTE | 2018-05-31 16:56 | NUR ---
RECEIVED PT FROM RECOVERY ROOM AFTER BIVICD PLACEMENT TO LEFT UPPER CHEST. PRESSURE DRESSING TO LEFT UPPER CHEST AND SLING TO LEFT ARM. SMALL TEGADERM DRESSING TO RT UPPER CHEST. PT IS STABLE. DENIES ANY PAIN. V/S CHECKED, STABLE AND RECORDED. INFORMED PT HE CANNOT EAT ANYTHING UNTIL CHEST XRAY DONE AND RESULT BACK.
[2018-05-31 16:57] VITALS: BP 118/79
--- NOTE | 2018-05-31 17:50 | NUR ---
CALLED AND INFORMED XRAY ABOUT PT NEED CHEST XRAY DONE AFTER BIVICD PLACEMENT, ALSO LET THEM KNOW AFTER THE CHEST XRAY RESULT ONLY PT CAN EAT.
--- NOTE | 2018-05-31 19:10 | NUR ---
PT RESTING IN BED COMFORTABLY, DENIES PAIN. STABLE. GAVE REPORT TO DISPATCHER CHIEF COAL SLURRY NURSE.
--- NOTE | 2018-05-31 19:15 | NUR ---
RECEIVED PT IN BED RESTING QUIETLY. HE IS ALERT,ORIENTED X4 LUNGS CTA. NO SOB ON ROOM AIR. PT IS S/P AICD PLACEMENT TODAY. W/ DRESSING TO LT SIDE OF CHEST CDI. SLING TO LT ARM IN PLACE. HE HAS NO C/O PAIN AT THIS TIME. ON TELE 12 AND 100 % PACED. HL TO LT HAND AND RTFA INTACT. CALL LIGHT W/IN REACH.
[2018-05-31 20:48] VITALS: BP 94/63
--- NOTE | 2018-05-31 21:00 | NUR ---
INFORMED DR. ERVIN REGARDING RESULT OF LATEST CXR. PEER DR. LOPEZ CAN EAT NOW.
--- NOTE | 2018-05-31 22:00 | NUR ---
INFORMED DR. ERVIN THAT PM DOSE OF COREG, AMIODAROE, LASIX WERE NOT GIVEN DUE TO BP OF 94/63 HR=69.
--- NOTE | 2018-06-01 00:15 | NUR ---
PT ASLEEP AND EASILY AROUSABLE. NO C/O DISCOMFORT AT THIS TIME.
--- NOTE | 2018-06-01 05:02 | NUR ---
PT SLEPT AT LONG INTERVALS. HE REMAINS ALERT AND ORIENTED X4. NO SOB OR RESP. DISTRESS. HE HAD NO C/O CHEST PAIN. DRESSING TO LT CHEST CDI. SLING TO LT ARM IN PLACE. HL TO RTFA DN LT HAND INTACT. ALL NEEDS ATTENDED TO.
[2018-06-01 06:00] VITALS: BP 105/66
[2018-06-01 06:35] LABS: CALCIUM 8.4 mg/dL (8.5-10.1); CARBON DIOXIDE 24.2 mmol/L (21-32); CHLORIDE SERUM 105 mmol/L (98-107); CREATININE SERUM 1.2 mg/dL (0.7-1.3); GFR1 > 60 mL/min; GLUCOSE SERUM 88 mg/dL (74-106); SODIUM SERUM 138 mmol/L (136-145)
[2018-06-01 06:58] LABS: BASOPHIL % 0.4 % (0-2); PLATELET COUNT 221 x10^3mcL (130-400)
[2018-06-01 06:59] LABS: RED CELL DISTRIBUTION WIDTH 17.5 % (11.5-14.5)
--- NOTE | 2018-06-01 07:30 | NUR ---
ALERT AND ORIENTED. BREATHING FREELY ON RA. DRESSING TO LEFT UPPER CHEST BIVICD SITE CDI. DENIES ANY PAIN. SL TO RT FA AND LT HAND PATENT.BRP. AMBULATES INHALLWAY FREQUENTLY. TELE # 12 PACED.WEARING SLING TO LEFT ARM TO KEEP ARM IMMOBILIZED. CALL LIGHT WITHIN REACH.
[2018-06-01 08:49] VITALS: BP 111/78
[2018-06-01 12:55] VITALS: BP 94/61
--- NOTE | 2018-06-01 13:25 | NUR ---
PTS BIVICD HAS BEEN INTEROGATED BY [facility].
[2018-06-01 13:41] VITALS: BP 94/61
--- NOTE | 2018-06-01 16:20 | NUR ---
DC'D TO HOME. SL X 2 DC'D. TELE # 12 RETURNED TO TELE STATION. NO NEW PRESCRIPTONS GIVEN. BELARUSIAN SPEAKING POWER WASHER ASSISTEDWITH DC. ALL DC INSTRUCTIONS REVIEWED WITH AND SIGNED BY PT. F/U ADRIANA GIVEN FOR DR. BRAN. PT TO OBTAIN BEEF GRINDER REFERRAL FROM [facility]. GAVE PT ID INFO FOR PACEMAKER.
== END 2018-06-01 16:16 | disposition home or self-care (01) | DRG 161 ==
LOC: ED 08:36 → DU 11:20 → IC 11:20 → DU 12:48 → IC 05-26 13:55 → DU 05-30 18:12
PROVIDERS: Emergency Medicine; Internal Medicine; ADMIT Family Medicine
PROC: 02HL3KZ Insertion of Defibrillator Lead into Left Ventricle, Percutaneous Approach (ICD-10-PCS; 2018-05-31)
PROC: 02H63KZ Insertion of Defibrillator Lead into Right Atrium, Percutaneous Approach (ICD-10-PCS; 2018-05-31)
PROC: 0JH608Z Insertion of Defibrillator Generator into Chest Subcutaneous Tissue and Fascia, Open Approach (ICD-10-PCS; principal; 2018-05-31 14:00)
DX: I25.5 Ischemic cardiomyopathy (principal); I21.A1 Myocardial infarction type 2; N17.0 Acute kidney failure with tubular necrosis; I13.0 Hypertensive heart and chronic kidney disease with heart failure and stage 1 through stage 4 chronic kidney disease, or unspecified chronic kidney disease; I50.43 Acute on chronic combined systolic (congestive) and diastolic (congestive) heart failure; E87.2 Acidosis; E11.22 Type 2 diabetes mellitus with diabetic chronic kidney disease; E11.65 Type 2 diabetes mellitus with hyperglycemia; N18.3 Chronic kidney disease, stage 3 (moderate); E87.1 Hypo-osmolality and hyponatremia; I44.7 Left bundle-branch block, unspecified; I08.1 Rheumatic disorders of both mitral and tricuspid valves; E44.0 Moderate protein-calorie malnutrition; I25.10 Atherosclerotic heart disease of native coronary artery without angina pectoris; E87.5 Hyperkalemia; E78.5 Hyperlipidemia, unspecified; I25.2 Old myocardial infarction; Z68.27 Body mass index [BMI] 27.0-27.9, adult; Z95.1 Presence of aortocoronary bypass graft; Z79.84 Long term (current) use of oral hypoglycemic drugs
CPT/HCPCS: 33225; 33249; 76937; 82962; 83880; 84439; C1769; J0690; J1644; J1940; J2001; J3010; J3370; J3475; J3490; J7030; J7040; J7050; P9047; Q0092; Q9967

== ENCOUNTER 2018-06-16 14:51 | Inpatient (IN) | payer OTHER ==
[~2018-06-16] VITALS: Ht 154.9 cm; Wt 74.0 kg
[~2018-06-16 14:51] MED LIST changes: +AMIODARONE HCL200 MG; +ENALAPRIL MALE2.5 MG PO; +LIPI20 PO
[2018-06-16 15:02] VITALS: Ht 154.9 cm; Wt 74.0 kg
[2018-06-16 17:10] LABS: BASOPHIL % 1.6 % (0-2); PLATELET COUNT 253 x10^3mcL (130-400)
[2018-06-16 17:15] LABS: RED CELL DISTRIBUTION WIDTH 18.6 % (11.5-14.5)
[2018-06-16 17:22] LABS: CALCIUM 8.1 mg/dL (8.5-10.1); CARBON DIOXIDE 18.6 mmol/L (21-32); CREATININE SERUM 1.5 mg/dL (0.7-1.3); POTASSIUM SERUM 5.2 mmol/L (3.5-5.1)
[2018-06-16 17:26] LABS: BILIRUBIN TOTAL 1.1 mg/dL (0.20-1.00); TOTAL PROTEIN, SERUM 6.5 g/dL (6.4-8.2)
[2018-06-16 17:33] LABS: ALBUMIN 2.9 g/dL (3.4-5.0)
[2018-06-16 18:56] LABS: MAGNESIUM 2.2 mg/dL (1.8-2.4); PHOSPHOROUS 4.2 mg/dL (2.5-4.9)
[2018-06-16 19:01] LABS: CHOLESTEROL/HDL RATIO 7.7
[2018-06-16 19:23] LABS: UA SPECIFIC GRAVITY >=1.030 (1.005-1.035); microscopic required? YES; urine erythrocyte 1+ (NEGATIVE)
[2018-06-16 19:49] VITALS: BP 110/76
[2018-06-16 20:04] LABS: AMPHETAMINE QUAL UR NONE DETECTED (See below)
[2018-06-16] MEDS ORDERED: LASIX20 MG PO (20:04)
[2018-06-16 20:47] VITALS: BP 110/76
[2018-06-17 05:48] VITALS: BP 126/65
[2018-06-17 08:36] LABS: CALCIUM 8.3 mg/dL (8.5-10.1); CARBON DIOXIDE 21.8 mmol/L (21-32); CREATININE SERUM 1.5 mg/dL (0.7-1.3); POTASSIUM SERUM 4.1 mmol/L (3.5-5.1)
[2018-06-17 08:43] LABS: BASOPHIL % 0.6 % (0-2); PLATELET COUNT 227 x10^3mcL (130-400)
[2018-06-17 08:45] LABS: RED CELL DISTRIBUTION WIDTH 18.5 % (11.5-14.5)
[2018-06-17 08:53] VITALS: BP 118/74
[2018-06-17 11:50] VITALS: BP 119/71
[2018-06-17 13:08] VITALS: BP 137/68
[2018-06-17 17:11] VITALS: BP 111/76
[2018-06-17 21:51] VITALS: BP 95/64
[2018-06-18 05:35] VITALS: BP 104/65
[2018-06-18 07:21] LABS: BASOPHIL % 0.7 % (0-2); PLATELET COUNT 214 x10^3mcL (130-400)
[2018-06-18 07:37] LABS: CALCIUM 7.7 mg/dL (8.5-10.1); CARBON DIOXIDE 25.2 mmol/L (21-32); CREATININE SERUM 1.4 mg/dL (0.7-1.3); POTASSIUM SERUM 3.6 mmol/L (3.5-5.1)
[2018-06-18 07:55] LABS: RED CELL DISTRIBUTION WIDTH 18.3 % (11.5-14.5)
[2018-06-18 09:20] VITALS: BP 105/52
[2018-06-18 09:22] VITALS: BP 110/65
[2018-06-18 13:55] VITALS: BP 112/64
[2018-06-18] MEDS ORDERED: LASIX40 MG PO (15:26)
[2018-06-18 15:43] VITALS: BP 112/64
== END 2018-06-18 16:40 | disposition home or self-care (01) | DRG 194 ==
LOC: ED 14:51 → DU 18:30
PROVIDERS: Emergency Medicine; ADMIT General Practice
DX: I11.0 Hypertensive heart disease with heart failure (principal); I21.A1 Myocardial infarction type 2; N17.0 Acute kidney failure with tubular necrosis; I50.31 Acute diastolic (congestive) heart failure; E44.0 Moderate protein-calorie malnutrition; E87.1 Hypo-osmolality and hyponatremia; E11.9 Type 2 diabetes mellitus without complications; I25.5 Ischemic cardiomyopathy; I25.10 Atherosclerotic heart disease of native coronary artery without angina pectoris; I25.2 Old myocardial infarction; E78.5 Hyperlipidemia, unspecified; E87.5 Hyperkalemia; K76.1 Chronic passive congestion of liver; R74.0 Nonspecific elevation of levels of transaminase and lactic acid dehydrogenase [LDH]; Z68.24 Body mass index [BMI] 24.0-24.9, adult; Z95.810 Presence of automatic (implantable) cardiac defibrillator; Z95.1 Presence of aortocoronary bypass graft
CPT/HCPCS: 82962; 83880; 97110-GP; J1644; J1940; Q0092

== ENCOUNTER 2018-10-26 21:07 | Inpatient (IN) | payer OTHER ==
[~2018-10-26] VITALS: Ht 162.6 cm; Wt 69.9 kg
[~2018-10-26 21:07] MED LIST changes: +LASIX40 MG PO
[2018-10-26 21:17] VITALS: Ht 162.6 cm; Wt 69.9 kg
--- NOTE | 2018-10-26 21:35 | NUR ---
PER ESTEBAN DOMÍNGUEZ TO ADD BNP TO TRIAGE ORDERS
[2018-10-26 22:06] LABS: BASOPHIL % 1.2 % (0-2); CALCIUM 8.5 mg/dL (8.5-10.1); CARBON DIOXIDE 20.4 mmol/L (21-32); CREATININE SERUM 1.6 mg/dL (0.7-1.3); PLATELET COUNT 177 x10^3mcL (130-400); POTASSIUM SERUM 4.3 mmol/L (3.5-5.1)
[2018-10-26 22:07] LABS: RED CELL DISTRIBUTION WIDTH 22.5 % (11.5-14.5)
[2018-10-26 22:11] LABS: BILIRUBIN TOTAL 1.69 mg/dL (0.20-1.00); TOTAL PROTEIN, SERUM 7.1 g/dL (6.4-8.2)
--- NOTE | 2018-10-26 22:48 | NUR ---
DR BLAKE AT BEDSIDE FOR MSE.
--- NOTE | 2018-10-26 22:50 | NUR ---
REC'D A 62/M IN RM 11 WITH C/O SUBSTERNAL CP X 3 DAYS. PT REPORTS SOB WITH KELVIN LEG AND TESTICLE SWELLING. HX OF DM, AR(2010)-> TRIPLE BYPASS, PACEMAKER. PT DESCRIBES THE PAIN INTERMITTENT, PRESSURE LIKE AND NONRADIATING. PT REPORTS PAIN WORSE WITH MOVEMENT. PT DENIES COUGH, OR N/V/D. PT AAOX4, CLEAR SPEECH, BOLIVIAN SPEAKING, RESP E/U, MULTIPLE MACULOPAPULAR RASH NOTED TO ABD, PT DENIES ITCHINESS. PT ON CM, IN NO ACUTE DISTRESS.
--- NOTE | 2018-10-26 23:59 | NUR ---
[facility] ACCOMPANIED BY RN AND TRANSPORTER. PT A/A/O X 4, CALM, COOPERATIVE; KYRGYZ-SPEAKING ONLY, SOY MOMIN FOR TRANSLATION. AMBULATORY, NO GAIT OR BALANCE IMPAIRMENT NOTED WALKING FROM [facility] TO BED. ON TELE # 10, NSR, HR 70, DENIES CHEST PAIN OR DISCOMFORT; PM TO LEFT CHEST WALL BY [facility], INSTALLED 05/2018. KELVIN RADIAL AND PEDAL PULSES PRESENT, PITTING EDEMA +2 TO BLE, CAP REFILL < 3 SECS, SCD BY BEDSIDE. LUNGS CTAB, CHEST RISING EVENLY, R/A, 96%, SOB UPON EXERTION, DRY COUGH. ABD DISTENDED, FIRM, NORMOACTIVE BOWEL SOUNDS X 4 QUADS, LAST BM 10/26/18, FORMED. NOTED SCABS TO BLE, SHAYLEE; MACULOPAPULAR RASH TO ABD, DISTRIBUTION ENGINEERING TECHNOLOGIST; ERYTHEMA TO L GROIN, DISTRIBUTION ENGINEERING TECHNOLOGIST. IV SITE LH 20G, CDI. ORIENTED PT TO ROOM, BED CONTROLS, CALL LIGHT SYSTEM. SIDE RAILS UP X 2, BED IN LOW POSITION. WILL ENDORSE TO RUT CABA.
--- NOTE | 2018-10-27 00:07 | NUR ---
REPORT GIVEN TO RUT CABA TO ASSUME CARE OF THE PT.
[2018-10-27 00:45] VITALS: BP 113/74
[2018-10-27 01:11] LABS: FREE T4 1.14 ng/dL (0.76-1.46); FREE THYROXINE INDEX 3.1 ug/dL (1.4-4.5)
[2018-10-27 01:12] LABS: T3 TOTAL 0.58 ng/mL
--- NOTE | 2018-10-27 02:13 | NUR ---
PT IS RESTING IN BED WITH EYES CLOSED AT THIS TIME. NO COMPLAINT OF PAIN. PT HAS BEEN CALM AND COOPERATVIE WITH CARE. SAFETY AND COMFORT MEASURES MAINTAINED, BED IN LOWEST POSITION, CALL LIGHT WITHIN REACH.
--- NOTE | 2018-10-27 05:12 | NUR ---
PT HAS RESTED IN INTERMITTENT INTERVALS THROUGHOUT THE SHIFT. PT HAS BEEN CALM AND COOPERATIVE WITH CARE. PT IS AWAKE AND WATCHING TV AT THIST TIME. NO COMPLAINT OF PAIN AT THIS TIME. PT HAS BEEN ALERT AND ORIENTED X4, IV IS SALINE LOCKED ATT HIS TIME. SAFETY AND COMFORT MEASURES MAINTAINED, BED IN LOWEST POSITION, CALL LIGHT WITHIN REACH. WILL ENDORSE CONTINUITY OF CARE TO THE ONCOMING RN.
[2018-10-27 05:28] VITALS: BP 110/81
[2018-10-27 06:35] LABS: BASOPHIL % 0.6 % (0-2); PLATELET COUNT 167 x10^3mcL (130-400)
[2018-10-27 06:38] LABS: RED CELL DISTRIBUTION WIDTH 22.1 % (11.5-14.5)
[2018-10-27 06:41] LABS: CALCIUM 8.4 mg/dL (8.5-10.1); CARBON DIOXIDE 24.2 mmol/L (21-32); CREATININE SERUM 1.5 mg/dL (0.7-1.3); PHOSPHOROUS 3.9 mg/dL (2.5-4.9); POTASSIUM SERUM 3.6 mmol/L (3.5-5.1)
--- NOTE | 2018-10-27 07:15 | NUR ---
RECEIVED PT. IN BED A/A/O X3. NO SOB, NO N/V NOTED. PT. DENIES ANY PAIN AT THIS TIME. IV SITE NOTED TO L HAND. PT. IS ON CONTACT ISOLATION (HX. MDRO E. COLI IN URINE). BED IN LOW POS., CALL LIGHT WITHIN REACH. SIDE RAILS UP X3.
--- NOTE | 2018-10-27 07:23 | NUR ---
CANCELLATION REQUESTED FOR ECHOCARDIOGRAM
--- NOTE | 2018-10-27 09:00 | NUR ---
CLARIFIED WITH DR. BRUNO (DR. HALL) REGARDING THE NEED FOR TROPONIN BLOOD DRAW AT [address] BRUNO STATED THAT THERE IS NO NEED TO DO TROPONIN LEVEL AT 0900 AM SINCE PT. ALREADY HAD 3 SETS OF TROPONIN DRAW.
[2018-10-27 09:25] VITALS: BP 100/70
[2018-10-27 10:30] LABS: rbc morphology (normal/abnorm) ABNORMAL (NORMAL); target cell (codocyte) 1+; tear drop cell (dacryocyte) 1+
[2018-10-27 11:16] LABS: microscopic required? NO
--- NOTE | 2018-10-27 11:45 | NUR ---
WOUND CARE EVALUATION NOTE: REASON FOR EVALUATION: EXCORIATION IN GROINS SKIN ASSESSMENT DONE WITH THIS 62 Y/O MALE PT ADMITTED TO [facility] WITH INITIAL DX CHEST PAIN.PAST MEDICAL HX INCLUDES CHF,OK ,HLD.PT IS AWAKE.SKIN WARM AND DRY, BLE DARK PIGMENTATION WITH DRY FLAKY SKIN, NO HAIR GROWTH, NO EDEMA. DORSAL PEDAL PULSES PRESENT AND NORMAL. PLAN OF CARE DISCUSSED WITH PRIMARY RN AND PT. PT. VERBALIZING UNDERSTANDING. INTEGUMENTARY: -MOIST ASSOCIATED DERMATITIS TO ABDOMINAL WALL AND GROINS AREA, SKIN INTACT. -BLE XEROSIS, SKIN INTACT -TINEA PEDIS TOESX10 WITH THICKEN TOE NAILS RECOMMENDATIONS: -APPLY HYDRAGUARD TO BLE, ABDOMINAL WALL AND GROINS AREAS BID AND OPEN TO AIR -KEEP SKIN DRY AND CLEAN AT ALL TIMES -CONTINUE TO FOLLOW RD RECOMMENDATIONS PLEASE CONTACT WOUND CARE NURSE FOR ANY QUESTION AND CHANGE OF WOUND CONDITION.
[2018-10-27 11:54] LABS: UA SPECIFIC GRAVITY <=1.005 (1.005-1.035); urine erythrocyte NEGATIVE (NEGATIVE)
[2018-10-27 12:02] LABS: AMPHETAMINE QUAL UR NONE DETECTED (See below)
--- NOTE | 2018-10-27 12:48 | NUR ---
RECEIVED A PHONE CALL FROM THE [employer]., WHO STATED THAT PT. HAD A RUN OF 3 PVC's IN A ROW ON HEART MONITOR. THE ABOVE EVENT (3 PVC's IN A ROW) WAS REPORTED TO DR. BRUNO. NO FURTHER ORDER RECEIVED AT THIS TIME.
[2018-10-27 13:25] VITALS: BP 102/75
--- NOTE | 2018-10-27 13:58 | NUR ---
HYDRAGUARD CREAM APPLIED TO BLE, ABD. WALL, AND KELVIN. GROINS.
--- NOTE | 2018-10-27 14:10 | NUR ---
ECHOCARDIOGRAM PENDING-DONE 05/11/18 -EF=10-15%--COPY IN CHART
--- NOTE | 2018-10-27 17:58 | NUR ---
REMAINS IN STABLE CONDITION AT THIS TIME. WILL CONTINUE TO MONITOR.
[2018-10-27 18:00] VITALS: BP 97/69
--- NOTE | 2018-10-27 19:30 | NUR ---
RECEIVED PT FROM DAY SHIFT RN. PT IS ALERT AND ORIENTED TO PERSON PLACE TIME AND SITUATION AND STNADING IN THE ROOM AT THIS TIME. PT IS SYRIAC SPEAKING BUT IS ABLE TO FOLLOW SIMPLE COMMANDS. PT DENIES CHEST PAIN AT THIS TIME. THERE ARE NO USE OF ACCESSORY MUSCLES OR LABORED BREATHING AND PT DOES NOT APPEAR TO BE IN ANY DISTRESS AT THIS TIME. ASKED PT IF IT WAS OK TO CHECK HIS PACEMAKER IN ORDER TO INTERROGATE. PT REFUSED AND STATED THAT HE WANTS TO GO HOME TOMORROW. REDUCATED PT ON THE NEED TO PROVIDE ADEQUATE CARE FOR SAFETY REASONS. PT VERBALIZED UNDERSTANDING BUT STILL REFUSES INTERROGATION AT THIS TIME. TELE MONITOR #[address] PT IS AMBULATORY INDEPENDENTLY. THERE IS A LEFT HAND IV THAT IS CLEAN DRY AND INTACT A THIS TIME. SAFETY MEASURES ARE IN PLACE. BED IN LOWEST POSITION. CALL LIGHT WITHIN REACH. WILL CONTINUE TO MONITOR.
--- NOTE | 2018-10-27 20:40 | NUR ---
BG LEVEL 125. WILL NOT ADMINISTER INSULIN.
[2018-10-27 20:55] VITALS: BP 96/67
--- NOTE | 2018-10-28 03:05 | NUR ---
PT SLEEPING IN BED. NO DISTRESS NOTED. BREATHING IS EVEN AND UNLABORED. CALL LIGHT WITHIN REACH.
[2018-10-28 05:55] VITALS: BP 104/73
--- NOTE | 2018-10-28 06:03 | NUR ---
PT SLEEPING IN BED. NO FACIAL GRIMMACING OR DISTRESS NOTED AT THIS TME. SAFETY MEASURES ARE IN PLACE. BED IS IN THE LOWEST POSITION. BREATHING EVEN AND UNLABORED. NO SIGNIFICANT CHANGES NOTED THROUGHOUT THE SHIFT. CALL LIGHT WITHIN REACH. WILL ENDORSE CONTINUITY OF CARE TO THE DAY SHIFT RN.
[2018-10-28 07:03] LABS: BASOPHIL % 0.7 % (0-2); PLATELET COUNT 188 x10^3mcL (130-400)
[2018-10-28 07:21] LABS: RED CELL DISTRIBUTION WIDTH 22.3 % (11.5-14.5)
[2018-10-28 07:22] LABS: rbc morphology (normal/abnorm) ABNORMAL (NORMAL)
[2018-10-28 07:26] LABS: CALCIUM 8.4 mg/dL (8.5-10.1); CARBON DIOXIDE 30.1 mmol/L (21-32); CREATININE SERUM 1.6 mg/dL (0.7-1.3); MAGNESIUM 2.1 mg/dL (1.8-2.4); POTASSIUM SERUM 3.8 mmol/L (3.5-5.1)
--- NOTE | 2018-10-28 07:51 | NUR ---
RECIVED HAND OFF REPORT FROM NIGHT NURSE. FOUND PATIENT LATING LEFT SIDED IN BED, EYES CLOSED, BREATHING REGULAR. APPARENTLY ASLEEP. DID NOT DISTURB PATIENT AT THIS TIME CALL LIGHT WIHTIN REACH
[2018-10-28 07:58] VITALS: BP 111/75
--- NOTE | 2018-10-28 08:12 | NUR ---
PATIENT AWAKE AND ALERT AT THIS TIME. FINISHED EATING BREAKFAST. PATIENT HAD NO COMPLAINTS JUST WONDERING WHEN HIS MORNING MEDICATIONS ARE DUE. PATIENT UP AND WALKING AROUND ROOM, STANDING BY DOOR TO SEE INTO HALLWAY. NO DISTRESS OR COMPLAINTS AT THIS TIME.
--- NOTE | 2018-10-28 08:41 | NUR ---
ADMINISTERED MEDICATIONS PER MAR. PATIENT HAD NO COMPLAINTS AT THIS TIME. CALL LIGHT WITHIN REACH
--- NOTE | 2018-10-28 10:35 | NUR ---
DOCTORS ROUNDED ON PATIENT, WOUND TO GROIN HEALING WELL AND DR JJ TOLD PATIENT HE WILL BE ABLE TO BE DISCHARGED HOME TODAY
--- NOTE | 2018-10-28 12:13 | NUR ---
BS RESULTS NEEDED NO COVERAGE. PATIENT SITTING UP ON SIDE OF BED WAITING FOR LUNCH TRAY. INFORMED PATIENT THAT DISCHARGE ORDERS BEING PREPARED NOW. CALL LIGHT WITHIN REACH
[2018-10-28 13:07] VITALS: BP 111/75
--- NOTE | 2018-10-28 14:21 | NUR ---
PATIENT STATED HIS BROTHER WOULD BE ABLE TO DRIVE HIM [place] AFTER 3PM. PATIENT SITTING IN BEDSIDE CHAIR. NO COMPLAINTS AT THIS TIME. CALL LIGHT WITHIN REACH
[2018-10-28 16:02] VITALS: BP 114/66
--- NOTE | 2018-10-28 16:17 | NUR ---
SPOKE WITH DR BRUNO AND CLARIFIED DISCHARGE MEDICATIONS FOR PATIENT. SHE SAID FOR HIM TO CONTINUE HIS HOME PRESCRIPTION FOR LASIX BUT IT IS RECOMENDED TO TAKE THE HIGHER DOSE OF 40MG. PATIENT STATED HE WILL NOT HAVE A RIDE UNTIL 8PM
--- NOTE | 2018-10-28 17:20 | NUR ---
PROVIDED DISCHARGE INSTRUCTIONS TO PATIENT WITH HELP OF IZAIAH GONSALEZ. ANSWERED PATIENT QUESTIONS AND INSTRUCTED PATIENT TO FOLLOW UP WITH PRIMARY CARE PROVIDER WELL CONTINUE HOME MEDICATIONS. PATIENT UNDERSTANDING OF INSTRUCTIONS. NO ADDITIONAL QUESTIONS AT THIS TIME. BG RESULT WAS 113, NO COVERAGE NEEDED PER SLIDING SCALE
--- NOTE | 2018-10-28 18:25 | NUR ---
PATIENT SITTING UP IN BEDSIDE CHAIR, NO COMPLAINTS AT THIS TIME, CALL LIGHT WITHIN REACH
--- NOTE | 2018-10-28 19:56 | NUR ---
PT BEING D/C HOME IN STABLE CONDITION AND WAS BEING ACCOMPANIED BY THE FAMILY ALL D/C INFORMATION WAS DONE IN AM BY THE NURSE.TELE OFF AND HL OFF.HOE WITH ALL BELONGINGS.
== END 2018-10-28 20:00 | disposition home or self-care (01) | DRG 190 ==
LOC: ED 21:07 → DU 23:12
PROVIDERS: ADMIT Internal Medicine
DX: I21.A1 Myocardial infarction type 2 (principal); I50.23 Acute on chronic systolic (congestive) heart failure; E44.0 Moderate protein-calorie malnutrition; E87.2 Acidosis; I13.0 Hypertensive heart and chronic kidney disease with heart failure and stage 1 through stage 4 chronic kidney disease, or unspecified chronic kidney disease; E11.22 Type 2 diabetes mellitus with diabetic chronic kidney disease; N17.9 Acute kidney failure, unspecified; E11.65 Type 2 diabetes mellitus with hyperglycemia; E80.6 Other disorders of bilirubin metabolism; N18.9 Chronic kidney disease, unspecified; E78.00 Pure hypercholesterolemia, unspecified; E78.5 Hyperlipidemia, unspecified; I25.5 Ischemic cardiomyopathy; I25.10 Atherosclerotic heart disease of native coronary artery without angina pectoris; I25.2 Old myocardial infarction; Z68.26 Body mass index [BMI] 26.0-26.9, adult; Z95.1 Presence of aortocoronary bypass graft; Z79.84 Long term (current) use of oral hypoglycemic drugs; Z95.810 Presence of automatic (implantable) cardiac defibrillator
CPT/HCPCS: 82962; 83880; 84439; G0378; J1644; J1940

== ENCOUNTER 2019-05-03 08:45 | Inpatient (IN) | payer MEDICAID ==
[~2019-05-03] VITALS: Ht 154.9 cm; Wt 60.8 kg
[2019-05-03 09:00] VITALS: Ht 154.9 cm; Wt 60.8 kg
[2019-05-03 10:09] LABS: CALCIUM 8.3 mg/dL (8.5-10.1); CARBON DIOXIDE 25.2 mmol/L (21-32); CREATININE SERUM 1.4 mg/dL (0.7-1.3); POTASSIUM SERUM 3.9 mmol/L (3.5-5.1)
[2019-05-03 10:10] LABS: ALBUMIN 2.4 g/dL (3.4-5.0); BILIRUBIN TOTAL 2.98 mg/dL (0.20-1.00); TOTAL PROTEIN, SERUM 6.6 g/dL (6.4-8.2)
[2019-05-03 10:30] LABS: BASOPHIL % 0.3 % (0-2); PLATELET COUNT 175 x10^3mcL (130-400); RED CELL DISTRIBUTION WIDTH 17.6 % (11.5-14.5)
[2019-05-03] MEDS ORDERED: COLACE100 MG PO (11:53)
[2019-05-03 16:19] VITALS: BP 96/72
[2019-05-03 20:36] VITALS: BP 99/70
[2019-05-04] VITALS (13 sets, daily range): BP systolic 85–109; BP diastolic 54–77
[2019-05-04 06:29] LABS: BASOPHIL % 0.9 % (0-2); PLATELET COUNT 161 x10^3mcL (130-400)
[2019-05-04 06:43] LABS: RED CELL DISTRIBUTION WIDTH 17.5 % (11.5-14.5)
[2019-05-04 07:04] LABS: CARBON DIOXIDE 22.2 mmol/L (21-32); CHLORIDE SERUM 97 mmol/L (98-107); GLUCOSE SERUM 64 mg/dL (74-106); POTASSIUM SERUM 4.1 mmol/L (3.5-5.1); SODIUM SERUM 132 mmol/L (136-145)
[2019-05-04 07:05] LABS: CALCIUM 8.4 mg/dL (8.5-10.1); CREATININE SERUM 1.2 mg/dL (0.7-1.3); GFR1 > 60 mL/min
[2019-05-04 13:18] LABS: APPEARANCE FLUID HAZY; COLOR FLUID YELLOW; SOURCE FLUID ASCITES
[2019-05-04 13:27] LABS: RBC FLUID 3125 /cumm; WBC FLUID 473 /cumm
[2019-05-04 13:28] LABS: LYMPHOCYTE FLUID 26 %; MONOCYTE FLUID 9 %
[2019-05-05 05:21] VITALS: BP 94/62
[2019-05-05 06:57] LABS: BASOPHIL % 0.6 % (0-2); PLATELET COUNT 145 x10^3mcL (130-400)
[2019-05-05 07:08] LABS: RED CELL DISTRIBUTION WIDTH 17.7 % (11.5-14.5)
[2019-05-05 08:38] VITALS: BP 101/76
[2019-05-05 09:02] LABS: CALCIUM 8.2 mg/dL (8.5-10.1); CARBON DIOXIDE 21 mmol/L (21-32); CHLORIDE SERUM 100 mmol/L (98-107); CREATININE SERUM 1.1 mg/dL (0.7-1.3); GFR1 > 60 mL/min; GLUCOSE SERUM 87 mg/dL (74-106); POTASSIUM SERUM 4.1 mmol/L (3.5-5.1); SODIUM SERUM 134 mmol/L (136-145)
[2019-05-05 12:52] VITALS: BP 99/72
[2019-05-05 16:55] VITALS: BP 108/71
[2019-05-05 21:05] VITALS: BP 85/62
[2019-05-05 23:25] VITALS: BP 88/64
[2019-05-06 06:15] VITALS: BP 83/60
[2019-05-06 07:00] LABS: BASOPHIL % 0.5 % (0-2); PLATELET COUNT 169 x10^3mcL (130-400)
[2019-05-06 07:01] LABS: RED CELL DISTRIBUTION WIDTH 17.6 % (11.5-14.5)
[2019-05-06 07:15] LABS: CALCIUM 7.9 mg/dL (8.5-10.1); CARBON DIOXIDE 22.7 mmol/L (21-32); CHLORIDE SERUM 98 mmol/L (98-107); CREATININE SERUM 1.2 mg/dL (0.7-1.3); GFR1 > 60 mL/min; GLUCOSE SERUM 115 mg/dL (74-106); POTASSIUM SERUM 4.1 mmol/L (3.5-5.1); SODIUM SERUM 133 mmol/L (136-145)
[2019-05-06 08:18] VITALS: BP 105/65
[2019-05-06 12:45] VITALS: BP 90/67
[2019-05-06 17:17] VITALS: BP 98/63
[2019-05-06 21:56] VITALS: BP 96/60
[2019-05-07 04:51] VITALS: BP 100/70
[2019-05-07 07:03] LABS: PLATELET COUNT 153 x10^3mcL (130-400)
[2019-05-07 08:03] LABS: CALCIUM 8.1 mg/dL (8.5-10.1); CARBON DIOXIDE 25.8 mmol/L (21-32); CREATININE SERUM 1.4 mg/dL (0.7-1.3); POTASSIUM SERUM 4.5 mmol/L (3.5-5.1)
[2019-05-07 08:20] VITALS: BP 109/74
[2019-05-07 08:28] LABS: RED CELL DISTRIBUTION WIDTH 17.4 % (11.5-14.5)
[2019-05-07] MEDS ORDERED: FLA500 PO (09:24)
[2019-05-07] MEDS ORDERED: AMO500 PO (09:24)
[2019-05-07] MEDS ORDERED: FLO4 PO (09:25)
[2019-05-07] MEDS ORDERED: COR200 PO (09:25)
[2019-05-07] MEDS ORDERED: PROA PO (09:25)
[2019-05-07] MEDS ORDERED: PRI20 PO (09:26)
[2019-05-07 10:32] VITALS: BP 109/74
== END 2019-05-07 11:43 | disposition home or self-care (01) | DRG 253 ==
LOC: ED 08:45 → MU 11:15 → DU 11:15 → MU 12:22 → DU 05-04 18:32 → MU 05-05 15:38
PROVIDERS: Emergency Medicine; Internal Medicine Gastroenterology; ADMIT Internal Medicine
PROC: 0W9G3ZZ Drainage of Peritoneal Cavity, Percutaneous Approach (ICD-10-PCS; 2019-05-04)
PROC: 0DB78ZX Excision of Stomach, Pylorus, Via Natural or Artificial Opening Endoscopic, Diagnostic (ICD-10-PCS; principal; 2019-05-05 13:00)
DX: K62.5 Hemorrhage of anus and rectum (principal); N17.0 Acute kidney failure with tubular necrosis; E43 Unspecified severe protein-calorie malnutrition; I13.0 Hypertensive heart and chronic kidney disease with heart failure and stage 1 through stage 4 chronic kidney disease, or unspecified chronic kidney disease; I50.22 Chronic systolic (congestive) heart failure; E11.22 Type 2 diabetes mellitus with diabetic chronic kidney disease; K76.6 Portal hypertension; R18.8 Other ascites; K74.60 Unspecified cirrhosis of liver; K29.70 Gastritis, unspecified, without bleeding; B96.81 Helicobacter pylori [H. pylori] as the cause of diseases classified elsewhere; K31.89 Other diseases of stomach and duodenum; E86.0 Dehydration; N18.9 Chronic kidney disease, unspecified; I25.5 Ischemic cardiomyopathy; I25.10 Atherosclerotic heart disease of native coronary artery without angina pectoris; E78.5 Hyperlipidemia, unspecified; Z79.82 Long term (current) use of aspirin; Z79.84 Long term (current) use of oral hypoglycemic drugs; Z68.25 Body mass index [BMI] 25.0-25.9, adult; Z95.1 Presence of aortocoronary bypass graft; Z95.810 Presence of automatic (implantable) cardiac defibrillator
CPT/HCPCS: 43235; 49083; 82962; 83880; 87116; 87206; 88344; 97116-GP; C1729; C9113; G0378; G0480; J0696; J1200; J1610; J2250; J2310; J3010; J3490; J7030; P9047; Q0092

== ENCOUNTER 2019-05-21 13:55 | Inpatient (IN) | payer OTHER ==
[~2019-05-21] VITALS: Ht 154.9 cm; Wt 65.5 kg
[~2019-05-21 13:55] MED LIST changes: +AMO500 PO; +COLACE100 MG PO; +COR200 PO; +FLA500 PO; +FLO4 PO; +PRI20 PO; +PROA PO
[2019-05-21 15:51] LABS: BASOPHIL % 0.8 % (0-2); PLATELET COUNT 195 x10^3mcL (130-400)
[2019-05-21 15:52] LABS: RED CELL DISTRIBUTION WIDTH 19.1 % (11.5-14.5)
[2019-05-21 15:54] LABS: POTASSIUM SERUM 4.1 mmol/L (3.5-5.1)
[2019-05-21 15:58] LABS: BILIRUBIN TOTAL 1.78 mg/dL (0.20-1.00); TOTAL PROTEIN, SERUM 6.6 g/dL (6.4-8.2)
[2019-05-21 16:00] LABS: ALBUMIN 2.5 g/dL (3.4-5.0)
[2019-05-21 16:33] LABS: UA SPECIFIC GRAVITY >=1.030 (1.005-1.035); microscopic required? YES; urine erythrocyte TRACE (NEGATIVE)
[2019-05-21 17:55] LABS: CHOLESTEROL/HDL RATIO 5.6
[2019-05-21 17:56] LABS: AMPHETAMINE QUAL UR NONE DETECTED (See below)
[2019-05-21 22:21] VITALS: BP 83/58
[2019-05-22] VITALS (7 sets, daily range): BP systolic 79–98; BP diastolic 57–69
[2019-05-22 07:54] LABS: PLATELET COUNT 188 x10^3mcL (130-400); RED CELL DISTRIBUTION WIDTH 18.1 % (11.5-14.5)
[2019-05-22 07:55] LABS: BASOPHIL % 0.6 % (0-2); CALCIUM 7.9 mg/dL (8.5-10.1); CREATININE SERUM 1.6 mg/dL (0.7-1.3); POTASSIUM SERUM 4.3 mmol/L (3.5-5.1)
[2019-05-22 17:28] LABS: SOURCE FLUID PARACENTESIS
[2019-05-22 17:58] LABS: APPEARANCE FLUID HAZY; COLOR FLUID YELLOW; LYMPHOCYTE FLUID 21 %; MONOCYTE FLUID 13 %; RBC FLUID 1707 /cumm; WBC FLUID 250 /cumm
[2019-05-23 05:03] VITALS: BP 94/67
[2019-05-23 06:48] LABS: BASOPHIL % 1.6 % (0-2); PLATELET COUNT 159 x10^3mcL (130-400)
[2019-05-23 07:18] LABS: RED CELL DISTRIBUTION WIDTH 18.6 % (11.5-14.5)
[2019-05-23 07:24] LABS: CALCIUM 7.7 mg/dL (8.5-10.1); CARBON DIOXIDE 22.2 mmol/L (21-32); CREATININE SERUM 1.6 mg/dL (0.7-1.3); POTASSIUM SERUM 4.2 mmol/L (3.5-5.1)
[2019-05-23 08:36] VITALS: BP 95/61
[2019-05-23 12:09] VITALS: BP 89/64
[2019-05-23 16:50] VITALS: BP 87/66
[2019-05-23 20:22] VITALS: BP 86/63
[2019-05-24 05:50] VITALS: BP 89/59
[2019-05-24 07:18] LABS: BASOPHIL % 0.5 % (0-2); PLATELET COUNT 148 x10^3mcL (130-400)
[2019-05-24 07:30] LABS: CALCIUM 8.1 mg/dL (8.5-10.1); CARBON DIOXIDE 21.3 mmol/L (21-32); CREATININE SERUM 1.4 mg/dL (0.7-1.3); POTASSIUM SERUM 4.5 mmol/L (3.5-5.1)
[2019-05-24 07:31] LABS: RED CELL DISTRIBUTION WIDTH 18.2 % (11.5-14.5)
[2019-05-24 08:47] VITALS: BP 93/67
[2019-05-24] MEDS ORDERED: ALDACTONE25 MG PO (10:11)
[2019-05-24] MEDS ORDERED: LASIX40 MG PO (10:11)
[2019-05-24] MEDS ORDERED: PROA PO (10:12)
[2019-05-24 12:48] VITALS: BP 107/80
[2019-05-24 13:31] VITALS: BP 107/80
== END 2019-05-24 18:32 | disposition home health service (06) | DRG 194 ==
LOC: ED 13:55 → DU 17:22
PROVIDERS: Internal Medicine; Internal Medicine Nephrology; Student in an Organized Health Care Education/Training Program; ADMIT Family Medicine
PROC: 0W9G3ZZ Drainage of Peritoneal Cavity, Percutaneous Approach (ICD-10-PCS; principal; 2019-05-22)
DX: I13.0 Hypertensive heart and chronic kidney disease with heart failure and stage 1 through stage 4 chronic kidney disease, or unspecified chronic kidney disease (principal); N17.0 Acute kidney failure with tubular necrosis; E43 Unspecified severe protein-calorie malnutrition; E11.22 Type 2 diabetes mellitus with diabetic chronic kidney disease; R18.8 Other ascites; N18.3 Chronic kidney disease, stage 3 (moderate); E87.1 Hypo-osmolality and hyponatremia; N48.89 Other specified disorders of penis; I50.23 Acute on chronic systolic (congestive) heart failure; N39.0 Urinary tract infection, site not specified; N43.3 Hydrocele, unspecified; I25.5 Ischemic cardiomyopathy; E80.6 Other disorders of bilirubin metabolism; I25.10 Atherosclerotic heart disease of native coronary artery without angina pectoris; I25.2 Old myocardial infarction; Z79.82 Long term (current) use of aspirin; Z68.25 Body mass index [BMI] 25.0-25.9, adult; Z95.1 Presence of aortocoronary bypass graft; Z95.810 Presence of automatic (implantable) cardiac defibrillator; Z79.84 Long term (current) use of oral hypoglycemic drugs
CPT/HCPCS: 49083; 82962; 83880; 88344; 97116-GP; C1729; G0378; J0696; J7030; P9047; Q0092